=== PATIENT | female | born 1960 | race Hispanic/Latino ===

== ENCOUNTER 2020-01-10 11:38 | Emergency (ER) | payer OTHER ==
[~2020-01-10] VITALS: Ht 160 cm; Wt 112.5 kg
--- OUTSIDE RECORDS SUMMARY | 2020-01-10 11:41 | XMS REPORT | Clinical Summary ---
Author Author [facility] Address Unknown Phone Unavailable Care Team Providers Care Marketing Professional Name Role Phone Chirag Casiano MD PCP Unavailable Allergies Comments Active Allergy Reactions Severity Noted Date Fluconazole Anaphylaxis High 08/30/2016 Medications End Date Status Medication Sig Dispensed Refills Start Date Active metoprolol (LOPRESSOR) 50 50 mg 2 (two) 0 01/0 3/201 MG tablet times daily . 7 Active ursodiol (ACTIGALL) 300 300 mg 2 0 08/13/ 201 mg capsule (two) times 7 daily 2 capsules in the mornings (600mg) and 1 cap at night (300mg). Active fenofibrate micronized 200 mg every 0 06/05/ 01 (LOFIBRA) 200 MG capsule morning 6 before breakfast . Active simvastatin (ZOCOR) 40 MG 40 mg nightly 0 07/11201 tablet . 6 Active aspirin 81 MG EC tablet Take 81 mg by 0 mouth daily. Active clopidogrel (PLAVIX) 75 Take 75 mg by 0 mg tablet mouth daily. Active glipiZIDE (GLUCOTROL) 10 Take 10 mg by 0 MG tablet mouth 2 (two) times daily before meals. Active insulin 70/30, insulin Inject 3-5 0 NPH-insulin regular, Units (HUMULIN 70/30) 100 subcutaneousl unit/mL (70-30) injection y 2 (two) times daily before meals. Active ranitidine (ZANTAC) 150 Take 1 tablet 60 tablet 11 05/29/201 MG tablet (150 mg 8 total) by mouth nightly. Active mINOCYCLine Take 100 mg 0 (MINOCIN,DYNACIN) 100 MG by mouth 2 capsule (two) times daily. Active Problems Problem Noted Date Hyperuricemia 05/29/2018 Increased [id number]-[id number] ratio 05/29/2018 Nephrotic syndrome, by hx 05/25/2018 JONATAN (acute kidney injury) 05/25/2018 Duodenal ulcer, by hx 05/25/2018 H/O: CVA (cerebrovascular accident) 05/24/2018 SOB (shortness of breath) 05/24/2018 Volume overload 05/23/2018 Acute heart failure 05/23/2018 Anemia 05/23/2018 Symptomatic anemia 09/12/2016 Leg swelling 09/12/2016 Type 2 diabetes mellitus with hyperglycemia 09/12/19 17 Black tarry stools 09/12/2016 Morbid obesity with BMI of 40.0-44.9, adult 09/12/19 17 Immunizations Name Dates Previously Given Next Due Pneumococcal Conjugate 07/19/2018, 05/29/2018 (Prevnar) 13-Valent Family History Medical History Relation Name Comments Heart disease Mother Relation Name Status Comments Mother Social History Date Tobacco Use Types Packs/Day Years Used Never Smoker Alcohol Use Drinks/Week oz/Week Comments No Sex Assigned at Date Recorded Not on file Industry Job Start Date Occupation Not on file Not on file Not on file Travel End Travel History Travel Start No recent travel history available. Last Filed Vital Signs Not on file Plan of Treatment Not on file Results Not on fileafter 01/09/2019 Insurance Payer Benefit Subscriber ID Type Phone Address Plan / Group [employer] - [employer] xxxxxxxxxxx HMO/POS NETWORK Advance Directives For more information, please contact: [facility] [address] [place] [address] Date Inactivated Comments Code Status Date Activated Full Code 07/18/2018 10:58 PM This code status was determined by: Patient 05/29/2018 7:44 PM Full Code 05/23/2018 11:20 PM This code status was determined by: Patient 09/13/2016 6:48 PM Full Code 09/12/2016 7:35 PM This code status was determined by: Patient
--- OUTSIDE RECORDS SUMMARY | 2020-01-10 11:41 | XMS REPORT ---
Author Author [facility] t Organization [facility] Address [address] [place] [address] Phone Unavailable Care Team Providers Care Cured Meats Supervisor Name Role Phone EWA FLORES WING Attphys Unavailable JESUSITA, PRICE WINTER Attphys Unavailable TRISHA PICKERING Attphys Unavailable MARIAM LOONEY Admphys Unavailable AYESHA AVILA Admphys Unavailable Payers Payer Name Policy Type Policy Number Effective Date Expiration Date S ource Problems This patient has no known problems. Allergies, Adverse Reactions, Alerts Allergy Name Allergy Type Status Severity Reaction(s) Onset Date Inacti ve Date Treating Clinician Comments Source fluconazole DA Active U 2019-12-28 00:00:00 [facility] fluconazole DA Active U 2018-04-30 00:00:00 [facility] fluconazole DA Active U 2016-08-14 00:00:[address] [facility] Medications This patient has no known medications. Procedures This patient has no known procedures. Results Test Description Test Time Test Comments Results Result Comments Source GLUBED 2019-12-29 11:09:00 Test Item GLUBED (test code = GLUBED) 337 mg/dL 74-106 H Performed by certified insulation batting machine operator at [facility] [id number] 06:27:00* Test Item Value Reference Range Interpretation Comments GLUBED (test code = GLUBED) 238 mg/dL 74-106 H Performed by certified insulation batting machine operator at [facility] BASIC METABOLIC [id number] 04:36:00* Test Item Value Reference Range Interpretation Comments SODIUM (test code = NA) 140 mmol/L 136-145 N POTASSIUM (test code = K) 4.4 mmol/L 3.5-5.1 N CHLORIDE (test code = CL) 106.0 mmol/L 98-107 N CARBON DIOXIDE (test code = CO2) 25.0 mmol/L 21-32 N ANION GAP (test code = GAP) 13.4 10-20 N GLUCOSE (test code = GLU) 199 mg/dL 74-106 H BLOOD UREA NITROGEN (test code = BUN) 42 mg/dL 7-18 H GLOMERULAR FILTRATION RATE (test code = GFR) 39 mL/min >=60 Estimated GFR by using Modified MDRD formula.Chronic kidney disease is defined as either kidney damageor GFR <60 mL/min/1.73 m2 for >3 months. CREATININE (test code = CREAT) 1.40 mg/dL 0.55-1.02 H Note change in reference range due to change in reagent. BUN/CREATININE RATIO (test code = BUN/CREA) 30.0 10-20 H CALCIUM (test code = CA) 8.1 mg/dL 8.5-10.1 L BASIC METABOLIC [id number] 04:31:00* Test Item Value Reference Range Interpretation Comments SODIUM (test code = NA) 140 mmol/L 136-145 N POTASSIUM (test code = K) 4.4 mmol/L 3.5-5.1 N CHLORIDE (test code = CL) 106.0 mmol/L 98-107 N CARBON DIOXIDE (test code = CO2) mmol/L 21-32 ANION GAP (test code = GAP) 10-20 GLUCOSE (test code = GLU) mg/dL 74-106 BLOOD UREA NITROGEN (test code = BUN) mg/dL 7-18 GLOMERULAR FILTRATION RATE (test code = GFR) mL/min >=60 CREATININE (test code = CREAT) mg/dL 0.55-1.02 BUN/CREATININE RATIO (test code = BUN/CREA) 10-20 CALCIUM (test code = CA) mg/dL 8.5-10.1 [id number] 21:13:00* Test Item Value Reference Range Interpretation Comments GLUBED (test code = GLUBED) 117 mg/dL 74-106 H Performed by certified insulation batting machine operator at [facility] - MRI BRAIN W/O [id number] 18:55:00 FAX: Syl Saunders [phone] [place]: St: ADM FAX: Margarette Hewitt NP Name: ALEXI AGUILAR [facility] : 1960 Age/S: 59/F [address] [facility] Unit #: [id number] Loc: V.20[address] [place] [address] Phys: Margarette Hewitt NP Acct: [id number] Dis Date: Status: ADM IN PHONE #: [phone] Exam Date: 12/28/2019 1623 FAX #: [phone] Reason: r/o CVA EXAMS: CPT CODE: [id number] MRI BRAIN W/O CONTRAST 79922 EXAM: MRI of the brain without contrast; INFORMATION: Hypertensive urgency, TIA; rule out CVA; TECHNIQUE AND FINDINGS: Multiplanar, multisequence scans of the brain were obtained including diffusion-weighted studies. The diffusion scans showed no areas of restricted diffusion. There is a small, chronic infarct in the left occipital lobe and there is extensive gliosis involving the periventricula r white matter and there are disseminated foci of gliosis in the deep whit e matter bilaterally. Otherwise, unremarkable archuleta/white matter diff erentiation. No evidence of mass lesions or midline shift. The gradi ent echo study shows no evidence of intra or extra-axial hemorrhage. Expected flow-voids are seen within vascular structures. Ventricles are s ymmetric and are prominent for age; sulci and basilar cisterns are intact. IMPRESSION: 1. No evidence of intracranial hemorrhage or acute ischemic lesions. 2. 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 3. Chronic ischemic white matter changes. 4. Mild atrophy. Location code: [facility] at 1855 Reported and signed by: Tree Velazco M.D. CC: Syl Dawson MD; Margarette Hewitt NP Technologist: Erwin RosenR)(MR) Trnscrd Date/Time/By: 0 12/28/2019 (1854) : By: RyanGRW Orig Print D/T: S: 12/28/2019 (1857) PAGE 1 Signed Report [id number] 16:47:00* Test Item Value Reference Range Interpretation Comments GLUBED (test code = GLUBED) 145 mg/dL 74-106 H Performed by certified insulation batting machine operator at [facility] [id number] 11:10:00* Test Item Value Reference Range Interpretation Comments GLUBED (test code = GLUBED) 384 mg/dL 74-106 H Performed by certified insulation batting machine operator at [facility] BASIC METABOLIC [id number] 07:24:00* Test Item Value Reference Range Interpretation Comments SODIUM (test code = NA) 139 mmol/L 136-145 N POTASSIUM (test code = K) 4.8 mmol/L 3.5-5.1 N CHLORIDE (test code = CL) 106.0 mmol/L 98-107 N CARBON DIOXIDE (test code = CO2) 26.0 mmol/L 21-32 N ANION GAP (test code = GAP) 11.8 10-20 N GLUCOSE (test code = GLU) 224 mg/dL 74-106 H BLOOD UREA NITROGEN (test code = BUN) 34 mg/dL 7-18 H RESULT VERIFIED BY REPEAT ANALYSIS GLOMERULAR FILTRATION RATE (test code = GFR) 46 mL/min >=60 Estimated GFR by using Modified MDRD formula.Chronic kidney disease is defined as either kidney damageor GFR <60 mL/min/1.73 m2 for >3 months. CREATININE (test code = CREAT) 1.20 mg/dL 0.55-1.02 H Note change in reference range due to change in reagent. BUN/CREATININE RATIO (test code = BUN/CREA) 28.3 10-20 H CALCIUM (test code = CA) 8.5 mg/dL 8.5-10.1 N LIPID PROFILE (CORONARY RISK)2019-12-28 07:23:00* Test Item Value Reference Range Interpretation Comments TRIGLYCERIDES (test code = TRIG) 266 mg/dL 20-150 H CHOLESTEROL (test code = CHOL) 174 mg/dL 0-200 N CHOLESTEROL/HDL RATIO (test code = CHOLHDL) 3.0 RATIO 0-4.9 N RISK ASSOCIATED WITH CHOL/HDL RATIOS: Risk Male Female1/2 AVERAGE 3.43 3.27AVERAGE 4.97 4.442X AVERAGE 9.55 7.053X AVERAGE 23.39 11.04 REFERENCE VALUE IS RELATED TO RISK LEVELS ASRECOMMENDED BY THE YAMEL. HEART, LUNG, AND BLOOD INST. HDL CHOLESTEROL (test code = HDL) 44 mg/dL 40-60 N LIPOPROTEIN LDL (test code = LDL) 99 mg/dL 100-129 L Reference Interval: mg/dL mmol/L Optimal <100 <2.6Near/above optimal 100-129 2.6- 3.3Borderline High 130-159 3.4-4.1High 160-189 4.1-4.9Very High >=190 >=4.9========= This LDL result is a direct measurement.========= CBC W/AUTO [id number] 07:16:00* Test Item Value Reference Range Interpretation Comments WHITE BLOOD CELL (test code = WBC) 9.1 K/mm3 4.5-12.5 N RED BLOOD CELL (test code = RBC) 3.79 mill/mm3 3.7-5.2 N HEMOGLOBIN (test code = HGB) 10.9 gram/dL 11.5-15.5 L HEMATOCRIT (test code = HCT) 33.7 % 36.0-46.0 L MEAN CELL VOLUME (test code = MCV) 88.9 fL 80-98 N MEAN CELL HGB (test code = MCH) 28.8 picogram 27.0-33.0 N MEAN CELL HGB CONCETRATION (test code = MCHC) 32.3 gram/dL 33.0-36. 0 L RED CELL DISTRIBUTION WIDTH (test code = RDW) 14.5 % 11.6-16. 2 N RED CELL DISTRIBUTION WIDTH SD (test code = RDW-SD) 46.7 fL 37 .0-51.0 N PLATELET COUNT (test code = PLT) 229 K/mm3 150-450 N MEAN PLATELET VOLUME (test code = MPV) 12.6 fL 6.7-11.0 H NEUTROPHIL % (test code = NT%) 56.3 % 39.0-69.0 N IMMATURE GRANULOCYTE % (test code = IG%) 0.3 % 0.0-5.0 N LYMPHOCYTE % (test code = LY%) 29.8 % 25.0-55.0 N MONOCYTE % (test code = MO%) 10.5 % 0.0-10.0 H EOSINOPHIL % (test code = EO%) 2.4 % 0.0-5.0 N BASOPHIL % (test code = BA%) 0.7 % 0.0-1.0 N NUCLEATED RBC % (test code = NRBC%) 0.0 % 0-0 N NEUTROPHIL # (test code = NT#) 5.12 K/mm3 1.8-7.7 N IMMATURE GRANULOCYTE # (test code = IG#) 0.03 x10 3/uL 0-0.03 N LYMPHOCYTE # (test code = LY#) 2.71 K/mm3 1.0-5.0 N MONOCYTE # (test code = MO#) 0.96 K/mm3 0-0.8 H EOSINOPHIL # (test code = EO#) 0.22 K/mm3 0.0-0.5 N BASOPHIL # (test code = BA#) 0.06 K/mm3 0.0-0.2 N NUCLEATED RBC # (test code = NRBC#) 0.00 K/mm3 0.0-0.1 N MANUAL DIFF REQUIRED (test code = MDIFF) NO BASIC METABOLIC [id number] 07:12:00* Test Item Value Reference Range Interpretation Comments SODIUM (test code = NA) 139 mmol/L 136-145 N POTASSIUM (test code = K) 4.8 mmol/L 3.5-5.1 N CHLORIDE (test code = CL) 106.0 mmol/L 98-107 N CARBON DIOXIDE (test code = CO2) mmol/L 21-32 ANION GAP (test code = GAP) 10-20 GLUCOSE (test code = GLU) mg/dL 74-106 BLOOD UREA NITROGEN (test code = BUN) mg/dL 7-18 GLOMERULAR FILTRATION RATE (test code = GFR) mL/min >=60 CREATININE (test code = CREAT) mg/dL 0.55-1.02 BUN/CREATININE RATIO (test code = BUN/CREA) 10-20 CALCIUM (test code = CA) mg/dL 8.5-10.1 [id number] 06:42:00* Test Item Value Reference Range Interpretation Comments GLUBED (test code = GLUBED) 234 mg/dL 74-106 H Performed by certified insulation batting machine operator at [facility] - CTA [id number] 02:47:00 Name: ALEXI AGUILAR [facility] : 1960 Age/S: 59 / F [address] [facility] Unit #: [id number] Loc: [place] [address] Phys: Margarette Hewitt NP Acct: [id number] Dis Date: Status: ADM IN PHONE #: [phone] Exam Date: 12/27/20192006 FAX #: [phone] Reason: r/o CVA EXAMS: CPT CODE: [id number] CTA NECK 58498 EXAM: - CTA NECK HISTORY: Left arm tingling. COMPARISON: May 02, 2018. TECHNIQUE: Helical axial images were obtained from aortic arch to mid calvarium with IV contrast using the CT angiography protocol. 3D volume rendering, MIP and review of multiplanar reconstructed images was done. This exam was performed according to our departmental dose-optimization program, which includes automated exposure control, adjustment of the mA and/or kV according to patient size and/or use of iterative reconstruction technique. FINDINGS: There is no significant change compared to prior exam. There is no significant stenosis in bilateral common carotid, and internal carotid arteries. The vertebral arteries are patent. Coronal and sagittal maximum intensity projection images with 3-D volume rendered images confirm these findings. IMPRESSION: Unremarkable CTA neck. at 0247 Reported and signed by: Shoaib Miller MD CC: Syl Dawson MD; Margarette Hewitt NP Technologist:Nilam Gongora RT(R); JAMIL Bach CTDI: DLP: Trnscb Date/Time: 12/28/2019 (246) [email or web address] Orig Print D/T: S: 12/28/2019 (3236) PAGE 1 Signed Report [id number] 22:28:00* Test Item Value Reference Range Interpretation Comments TROPONIN-I (test code = TROPI) <0.015 ng/mL 0-0.045 N [id number] 22:18:00* Test Item Value Reference Range Interpretation Comments GLUBED (test code = GLUBED) 309 mg/dL 74-106 H Performed by certified insulation batting machine operator at [facility] [id number] 19:53:00* Test Item Value Reference Range Interpretation Comments D-DIMER (test code = DDIMER) 680.00 ng/mLFEU 0-500 HH Results called to [id number] by VYANIRA 12/27/19 1953Critical results verified and read back by Nurse? YClinical Cut-off value for D-Dimer is 500 ng/mL FEU. Comment: The [employer] D- Dimer assay is intended for use asan aid in the diagnosis of venous thromboembolism (VTE)[deep vein thrombosis (DVT) or pulmonary embolism (PE)].The measurement of D-Dimer should not be used as an aid inthe diagnosis of VTE, in patient with: -Therapeutic dose anticoagulant therapy for >24 hours - Fibrinolytic therapy within previous 7 days -Trauma or surgery within previous 4 weeks -Disseminated malignancies -Aortic aneurysm -Sepsis, severe infections, pneumonia, severe skin infections -Liver cirrhosis - [id number] 18:27:00* Test Item Value Reference Range Interpretation Comments MAGNESIUM (test code = MAG) 1.7 mg/dL 1.8-2.4 L THYROID STIMULATING [id number] 18:27:00* Test Item Value Reference Range Interpretation Comments THYROID STIMULATING HORMONE (test code = TSH) 2.470 uIU/mL 0.36-3.7 4 N TSH REFERENCE RANGES: EUTHYROID: 0.35 - 4.3 mIU/mL HYPO : > 5.5 mIU/mL HYPER : < 0.35 mIU/mL [id number] 18:22:00* Test Item Value Reference Range Interpretation Comments POTASSIUM (test code = K) 5.0 mmol/L 3.5-5.1 N [id number] 18:20:00* Test Item Value Reference Range Interpretation Comments TROPONIN-I (test code = TROPI) 0.022 ng/mL 0-0.045 N [id number] 18:15:00* Test Item Value Reference Range Interpretation Comments GLYCOSYLATED HEMOGLOBIN (HA1C) (test code = GLYHGB) 12.3 % HbA1 SUGGESTED DIAGNOSIS: HbA1C (%) Diabetic >6.4Prediabetes 5.7 - 6.4Normal <5.7 ESTIMATED AVERAGE GLUCOSE (test code = EAG) 306 MG/DL [id number] 18:15:00* Test Item Value Reference Range Interpretation Comments MAGNESIUM (test code = MAG) 1.7 mg/dL 1.8-2.4 L THYROID STIMULATING [id number] 18:15:00* Test Item Value Reference Range Interpretation Comments THYROID STIMULATING HORMONE (test code = TSH) uIU/mL 0.36-3.7 4 [id number] 16:18:00* Test Item Value Reference Range Interpretation Comments GLUBED (test code = GLUBED) 254 mg/dL 74-106 H Performed by certified insulation batting machine operator at [facility] URINALYSIS [id number] 13:55:00* Test Item Value Reference Range Interpretation Comments UA COLOR (test code = COLU) Light-Yellow YELLOW UA APPEARANCE (test code = APPU) CLEAR CLEAR UA GLUCOSE DIPSTICK (test code = DGLUU) 500 (3+) mg/dL NEGATIVE A UA BILIRUBIN DIPSTICK (test code = BILU) NEGATIVE mg/dL NEGATIVE UA KETONE DIPSTICK (test code = KETU) NEGATIVE mg/dL NEGATIVE UA SPECIFIC GRAVITY (test code = SGU) 1.012 1.001-1.035 UA BLOOD DIPSTICK (test code = STACIE) 0.06 mg/dL (1+) mg/dL NEGATIVE A UA PH DIPSTICK (test code = JOHNIE) 7.0 5.0-8.0 UA PROTEIN DIPSTICK (test code = PROU) 300 (3+) mg/dL NEGATIVE A UA UROBILINIOGEN DIPSTICK (test code = URO) Normal mg/dL NEGATIVE UA NITRITE DIPSTICK (test code = KEREN) NEGATIVE NEGATIVE UA LEUKOCYTE ESTERASE W REFLEX (test code = LEUUR) NEGATIVE Roxanne/uL NEGATIVE UA WBC (test code = WBCU) 6-10 per HPF 0-5 A UA RBC (test code = RBCU) 11-20 #/HPF 0-5 A UA EPITHELIAL CELLS (test code = EPIU) FEW per HPF FEW UA BACTERIA (test code = BACU) NONE SEEN #/HPF NONE UA HYALINE CAST (test code = HYALU) 6-10 #/LPF 0-5 A UA MUCUS (test code = MUCU) FEW #/LPF FEW Urine Source? Clean CatchURINALYSIS [id number] 13:44:00* Test Item Value Reference Range Interpretation Comments UA COLOR (test code = COLU) Light-Yellow YELLOW UA APPEARANCE (test code = APPU) CLEAR CLEAR UA GLUCOSE DIPSTICK (test code = DGLUU) 500 (3+) mg/dL NEGATIVE A UA BILIRUBIN DIPSTICK (test code = BILU) NEGATIVE mg/dL NEGATIVE UA KETONE DIPSTICK (test code = KETU) NEGATIVE mg/dL NEGATIVE UA SPECIFIC GRAVITY (test code = SGU) 1.012 1.001-1.035 UA BLOOD DIPSTICK (test code = STACIE) 0.06 mg/dL (1+) mg/dL NEGATIVE A UA PH DIPSTICK (test code = JOHNIE) 7.0 5.0-8.0 UA PROTEIN DIPSTICK (test code = PROU) 300 (3+) mg/dL NEGATIVE A UA UROBILINIOGEN DIPSTICK (test code = URO) Normal mg/dL NEGATIVE UA NITRITE DIPSTICK (test code = KEREN) NEGATIVE NEGATIVE UA LEUKOCYTE ESTERASE W REFLEX (test code = LEUUR) NEGATIVE Roxanne/uL NEGATIVE UA WBC (test code = WBCU) per HPF 0-5 UA RBC (test code = RBCU) per HPF 0-5 UA EPITHELIAL CELLS (test code = EPIU) per HPF Few UA BACTERIA (test code = BACU) per HPF NONE Urine Source? Clean Catch- CT HEAD/BRAIN W/O [id number] 13:43:00 Name: ALEXI AGUILAR [facility] : 1960 Age/S: 59 / F [address] Unit #: [id number] Loc: [place] [address] Phys: Keila Mckeon MD Acct: [id number] Di s Date: Status: REG ER PHONE #: Exam Date: 12/27/2019 1332 FAX #: [phone] Reason: WEAKNESS EXAMS: CPT CODE: [id number] CT HEAD/BRAIN W/O CONT 93342 HISTORY: Weakness. COMPARISON: MRI brain from August 27, 2010 and MRI brain from Apr and head CT from April 30, 2018. Location: [facility] . CT brain without contrast: Automated exposure control. No acute intracranial bleeds or extra-axial collections are noted. No acute territorial vascular infarction is noted. The sulci, gyri, ventricles and subarachnoid spaces and the basilar cisterns are normal for patient's age. No herniation or hydrocephalus or midline shift is noted. Mild periventricular ischemic gliosis is noted. Age-appropriate atrophy is noted as well. Portions of the visualized paranasal sinuses are normal. No obvious bony calvarial defect is noted. IMPRESSION: No acute intracranial bleeds or extra- axial collections. No acute territorial vascular infarction. No herniation or hydrocephalus or midline shift. Chronic white matter ischemic disease and atrophy . at 1343 Reported and signed by: Arpit Henning M.D. CC: Ivone Mckeon MD Technologist:Camille Patel,RT(R),CT CTDI: DLP: Trnscb Date/Time: 12/27/2019 (9442) t.SDR.[email or web address] Orig Print D/T: S: 12/27/2019 (5339) PAGE 1 Signed Report PROTHROMBIN [id number] 12:42:00* Test Item Value Reference Range Interpretation Comments PROTHROMBIN TIME PATIENT (test code = PTP) 12.3 seconds 9.0-14.0 N INTERNATIONAL NORMAL RATIO (test code = INR) 1.1 0.8-1.2 N The therapeutic range for oral anticoagulant therapy formost indications is an international normalized ratio (INR)of between 2.0 and 3.0. The recommended therapeutic INRrange for various clinical situations is listed below: Clinical Situation INR range Pulmonary e mbolism treatment (2.0-3.0)Venous thrombosis treatmentVenous thrombosis prophylaxis (high risk surgery)Prevention of systemic embolism from: Acute myocardial infarction Valvular heart disease Atrial fibrillation Mechanical prosthetic heart valves (2.5-3.5) IS PATIENT ON ANTICOAGULANTS? NTHROMBOPLASTIN TIME [id number] 12:42:00* Test Item Value Reference Range Interpretation Comments THROMBOPLASTIN TIME PARTIAL (test code = PTT) 33.9 seconds 23.0-37. 0 N IS PATIENT ON ANTICOAGULANTS? NBASIC METABOLIC [id number] 12:41:00* Test Item Value Reference Range Interpretation Comments SODIUM (test code = NA) 136 mmol/L 136-145 N POTASSIUM (test code = K) 5.6 mmol/L 3.5-5.1 H CHLORIDE (test code = CL) 106.0 mmol/L 98-107 N CARBON DIOXIDE (test code = CO2) 23.0 mmol/L 21-32 N ANION GAP (test code = GAP) 12.6 10-20 N GLUCOSE (test code = GLU) 280 mg/dL 74-106 H BLOOD UREA NITROGEN (test code = BUN) 28 mg/dL 7-18 H GLOMERULAR FILTRATION RATE (test code = GFR) 57 mL/min >=60 Estimated GFR by using Modified MDRD formula.Chronic kidney disease is defined as either kidney damageor GFR <60 mL/min/1.73 m2 for >3 months. CREATININE (test code = CREAT) 1.00 mg/dL 0.55-1.02 N Note change in reference range due to change in reagent. BUN/CREATININE RATIO (test code = BUN/CREA) 29.0 10-20 H CALCIUM (test code = CA) 8.3 mg/dL 8.5-10.1 L HEPATIC FUNCTION [id number] 12:41:00* Test Item Value Reference Range Interpretation Comments TOTAL PROTEIN (test code = PROT) 6.8 gram/dL 6.4-8.2 N ALBUMIN (test code = ALB) 2.4 g/dL 3.4-5.0 L GLOBULIN (test code = GLOB) 4.4 gram/dL 2.7-4.2 H ALBUMIN/GLOBULIN RATIO (test code = A/G) 0.5 0.75-1.50 L BILIRUBIN TOTAL (test code = BILT) 0.50 mg/dL 0.0-1.0 N BILIRUBIN DIRECT (test code = BILD) 0.06 mg/dL 0.0-0.20 N SGOT/AST (test code = AST) 36 IUnit/L 15-37 N SGPT/ALT (test code = ALT) 20 IUnit/L 12-78 N ALKALINE PHOSPHATASE TOTAL (test code = ALKP) 256 IUnit/L 45-117 H Note change in reference range due to change in reagent. [id number] 12:41:00* Test Item Value Reference Range Interpretation Comments LIPASE (test code = LIP) 261 U/L 73.0-393.0 N [id number] 12:41:00* Test Item Value Reference Range Interpretation Comments TROPONIN-I (test code = TROPI) <0.015 ng/mL 0-0.045 N BASIC METABOLIC [id number] 12:34:00* Test Item Value Reference Range Interpretation Comments SODIUM (test code = NA) 136 mmol/L 136-145 N POTASSIUM (test code = K) 5.6 mmol/L 3.5-5.1 H CHLORIDE (test code = CL) 106.0 mmol/L 98-107 N CARBON DIOXIDE (test code = CO2) mmol/L 21-32 ANION GAP (test code = GAP) 10-20 GLUCOSE (test code = GLU) mg/dL 74-106 BLOOD UREA NITROGEN (test code = BUN) mg/dL 7-18 GLOMERULAR FILTRATION RATE (test code = GFR) mL/min >=60 CREATININE (test code = CREAT) mg/dL 0.55-1.02 BUN/CREATININE RATIO (test code = BUN/CREA) 10-20 CALCIUM (test code = CA) mg/dL 8.5-10.1 HEPATIC FUNCTION [id number] 12:34:00* Test Item Value Reference Range Interpretation Comments TOTAL PROTEIN (test code = PROT) gram/dL 6.4-8.2 ALBUMIN (test code = ALB) g/dL 3.4-5.0 GLOBULIN (test code = GLOB) gram/dL 2.7-4.2 ALBUMIN/GLOBULIN RATIO (test code = A/G) 0.75-1.50 BILIRUBIN TOTAL (test code = BILT) mg/dL 0.0-1.0 BILIRUBIN DIRECT (test code = BILD) mg/dL 0.0-0.20 SGOT/AST (test code = AST) IUnit/L 15-37 SGPT/ALT (test code = ALT) IUnit/L 12-78 ALKALINE PHOSPHATASE TOTAL (test code = ALKP) IUnit/L 45-117 [id number] 12:34:00* Test Item Value Reference Range Interpretation Comments LIPASE (test code = LIP) U/L 73.0-393.0 [id number] 12:34:00* Test Item Value Reference Range Interpretation Comments TROPONIN-I (test code = TROPI) ng/mL 0-0.045 CBC W/O [id number] 12:31:00* Test Item Value Reference Range Interpretation Comments WHITE BLOOD CELL (test code = WBC) 9.6 K/mm3 4.5-12.5 N RED BLOOD CELL (test code = RBC) 4.22 mill/mm3 3.7-5.2 N HEMOGLOBIN (test code = HGB) 11.9 gram/dL 11.5-15.5 N HEMATOCRIT (test code = HCT) 37.3 % 36.0-46.0 N MEAN CELL VOLUME (test code = MCV) 88.4 fL 80-98 N MEAN CELL HGB (test code = MCH) 28.2 picogram 27.0-33.0 N MEAN CELL HGB CONCETRATION (test code = MCHC) 31.9 gram/dL 33.0-36. 0 L RED CELL DISTRIBUTION WIDTH (test code = RDW) 14.3 % 11.6-16. 2 N PLATELET COUNT (test code = PLT) 245 K/mm3 150-450 N MEAN PLATELET VOLUME (test code = MPV) 12.7 fL 6.7-11.0 H POCT-GLUCOSE [id number] 12:34:00* Test Item Value Reference Range Interpretation Comments POC-GLUCOSE METER (BEAKER) (test code = 1538) 283 mg/dL 70-110 H TESTED AT [facility] [address] [facility] [address] POCT-GLUCOSE [id number] 08:22:00* Test Item Value Reference Range Interpretation Comments POC-GLUCOSE METER (BEAKER) (test code = 1538) 190 mg/dL 70-110 H TESTED AT [address] [address] [id number] 05:07:00* Test Item Value Reference Range Interpretation Comments MAGNESIUM (BEAKER) (test code = 627) 2.2 mg/dL 1.6-2.6 BASIC METABOLIC [id number] 05:07:00* Test Item Value Reference Range Interpretation Comments SODIUM (BEAKER) (test code = 381) 139 meq/L 136-145 POTASSIUM (BEAKER) (test code = 379) 3.9 meq/L 3.5-5.1 CHLORIDE (BEAKER) (test code = 382) 95 meq/L 98-107 L CO2 (BEAKER) (test code = 355) 34 meq/L 22-29 H BLOOD UREA NITROGEN (BEAKER) (test code = 354) 100 mg/dL 7-21 H CREATININE (BEAKER) (test code = 358) 1.59 mg/dL 0.57-1.25 H GLUCOSE RANDOM (BEAKER) (test code = 652) 140 mg/dL 70-105 H CALCIUM (BEAKER) (test code = 697) 9.4 mg/dL 8.4-10.2 EGFR (BEAKER) (test code = 1092) 33 mL/min/1.73 sq m ESTIMATED GFR IS NOT ACCURATE CREATININE CLEARANCE IN PREDICTING GLOMERULAR FILTRATION RATE. ESTIMATED GFR IS NOT APPLICABLE FOR DIALYSIS PATIENTS. POCT-GLUCOSE [id number] 21:50:00* Test Item Value Reference Range Interpretation Comments POC-GLUCOSE METER (BEAKER) (test code = 1538) 408 mg/dL 70-110 HH TESTED AT [place] [id number] [facility] [address] POCT-GLUCOSE [id number] 17:16:00* Test Item Value Reference Range Interpretation Comments POC-GLUCOSE METER (BEAKER) (test code = 1538) 280 mg/dL 70-110 H TESTED AT [facility] [address] [facility] [address] POCT-GLUCOSE [id number] 12:39:00* Test Item Value Reference Range Interpretation Comments POC-GLUCOSE METER (BEAKER) (test code = 1538) 321 mg/dL 70-110 H TESTED AT [place] [id number] [facility] [address] POCT-GLUCOSE [id number] 08:49:00* Test Item Value Reference Range Interpretation Comments POC-GLUCOSE METER (BEAKER) (test code = 1538) 178 mg/dL 70-110 H TESTED AT [place] [id number] [facility] [address] [id number] 07:00:00* Test Item Value Reference Range Interpretation Comments MAGNESIUM (BEAKER) (test code = 627) 2.0 mg/dL 1.6-2.6 BASIC METABOLIC [id number] 07:00:00* Test Item Value Reference Range Interpretation Comments SODIUM (BEAKER) (test code = 381) 136 meq/L 136-145 POTASSIUM (BEAKER) (test code = 379) 3.6 meq/L 3.5-5.1 CHLORIDE (BEAKER) (test code = 382) 94 meq/L 98-107 L CO2 (BEAKER) (test code = 355) 31 meq/L 22-29 H BLOOD UREA NITROGEN (BEAKER) (test code = 354) 100 mg/dL 7-21 H CREATININE (BEAKER) (test code = 358) 1.74 mg/dL 0.57-1.25 H GLUCOSE RANDOM (BEAKER) (test code = 652) 146 mg/dL 70-105 H CALCIUM (BEAKER) (test code = 697) 9.0 mg/dL 8.4-10.2 EGFR (BEAKER) (test code = 1092) 30 mL/min/1.73 sq m ESTIMATED GFR IS NOT ACCURATE CREATININE CLEARANCE IN PREDICTING GLOMERULAR FILTRATION RATE. ESTIMATED GFR IS NOT APPLICABLE FOR DIALYSIS PATIENTS. CBC W/PLT COUNT & AUTO [id number] 06:14:00* Test Item Value Reference Range Interpretation Comments WHITE BLOOD CELL COUNT (BEAKER) (test code = 775) 7.0 K/ L 3.5- 10.5 RED BLOOD CELL COUNT (BEAKER) (test code = 761) 3.17 M/ L 3.93-5 .22 L HEMOGLOBIN (BEAKER) (test code = 410) 8.6 GM/DL 11.2-15.7 L HEMATOCRIT (BEAKER) (test code = 411) 27.4 % 34.1-44.9 L MEAN CORPUSCULAR VOLUME (BEAKER) (test code = 753) 86.4 fL 79. 4-94.8 MEAN CORPUSCULAR HEMOGLOBIN (BEAKER) (test code = 751) 27.1 pg 25.6-32.2 MEAN CORPUSCULAR HEMOGLOBIN CONC (BEAKER) (test code = 752) 31.4 GM/DL 32.2-35.5 L RED CELL DISTRIBUTION WIDTH (BEAKER) (test code = 412) 16.0 % 11.7-14.4 H PLATELET COUNT (BEAKER) (test code = 756) 191 K/CU MM 150-450 MEAN PLATELET VOLUME (BEAKER) (test code = 754) 13.1 fL 9.4-12 .3 H NUCLEATED RED BLOOD CELLS (BEAKER) (test code = 413) 0 /100 WBC 0 -0 NEUTROPHILS RELATIVE PERCENT (BEAKER) (test code = 429) 38 % LYMPHOCYTES RELATIVE PERCENT (BEAKER) (test code = 430) 41 % MONOCYTES RELATIVE PERCENT (BEAKER) (test code = 431) 15 % EOSINOPHILS RELATIVE PERCENT (BEAKER) (test code = 432) 4 % BASOPHILS RELATIVE PERCENT (BEAKER) (test code = 437) 1 % NEUTROPHILS ABSOLUTE COUNT (BEAKER) (test code = 670) 2.68 K/ L 1.56-6.13 LYMPHOCYTES ABSOLUTE COUNT (BEAKER) (test code = 414) 2.83 K/ L 1.18-3.74 MONOCYTES ABSOLUTE COUNT (BEAKER) (test code = 415) 1.07 K/ L 0. 24-0.36 H EOSINOPHILS ABSOLUTE COUNT (BEAKER) (test code = 416) 0.31 K/ L 0.04-0.36 BASOPHILS ABSOLUTE COUNT (BEAKER) (test code = 417) 0.07 K/ L 0. 01-0.08 IMMATURE GRANULOCYTES-RELATIVE PERCENT (BEAKER) (test code = 2801) 0 % 0-1 POCT-GLUCOSE [id number] 21:45:00* Test Item Value Reference Range Interpretation Comments POC-GLUCOSE METER (BEAKER) (test code = 1538) 188 mg/dL 70-110 H TESTED AT [address] [address] POCT-GLUCOSE [id number] 17:41:00* Test Item Value Reference Range Interpretation Comments POC-GLUCOSE METER (BEAKER) (test code = 1538) 278 mg/dL 70-110 H TESTED AT [address] [address] POCT-GLUCOSE [id number] 12:36:00* Test Item Value Reference Range Interpretation Comments POC-GLUCOSE METER (BEAKER) (test code = 1538) 193 mg/dL 70-110 H TESTED AT [address] [address] POCT-GLUCOSE [id number] 09:38:00* Test Item Value Reference Range Interpretation Comments POC-GLUCOSE METER (BEAKER) (test code = 1538) 201 mg/dL 70-110 H TESTED AT [address] [address] POCT-GLUCOSE [id number] 09:02:00* Test Item Value Reference Range Interpretation Comments POC-GLUCOSE METER (BEAKER) (test code = 1538) 202 mg/dL 70-110 H TESTED AT [address] [address] TSH/FREE T4 IF [id number] 05:41:00* Test Item Value Reference Range Interpretation Comments THYROID STIMULATING HORMONE (BEAKER) (test code = 772) 2.72 uIU/mL 0.35-4.94 BASIC METABOLIC [id number] 05:29:00* Test Item Value Reference Range Interpretation Comments SODIUM (BEAKER) (test code = 381) 137 meq/L 136-145 POTASSIUM (BEAKER) (test code = 379) 3.7 meq/L 3.5-5.1 CHLORIDE (BEAKER) (test code = 382) 94 meq/L 98-107 L CO2 (BEAKER) (test code = 355) 32 meq/L 22-29 H BLOOD UREA NITROGEN (BEAKER) (test code = 354) 102 mg/dL 7-21 H CREATININE (BEAKER) (test code = 358) 2.05 mg/dL 0.57-1.25 H GLUCOSE RANDOM (BEAKER) (test code = 652) 158 mg/dL 70-105 H CALCIUM (BEAKER) (test code = 697) 9.0 mg/dL 8.4-10.2 EGFR (BEAKER) (test code = 1092) 25 mL/min/1.73 sq m ESTIMATED GFR IS NOT ACCURATE CREATININE CLEARANCE IN PREDICTING GLOMERULAR FILTRATION RATE. ESTIMATED GFR IS NOT APPLICABLE FOR DIALYSIS PATIENTS. [id number] 05:28:00* Test Item Value Reference Range Interpretation Comments MAGNESIUM (BEAKER) (test code = 627) 1.9 mg/dL 1.6-2.6 CBC W/PLT COUNT & AUTO [id number] 05:01:00* Test Item Value Reference Range Interpretation Comments WHITE BLOOD CELL COUNT (BEAKER) (test code = 775) 6.7 K/ L 3.5- 10.5 RED BLOOD CELL COUNT (BEAKER) (test code = 761) 2.95 M/ L 3.93-5 .22 L HEMOGLOBIN (BEAKER) (test code = 410) 8.3 GM/DL 11.2-15.7 L HEMATOCRIT (BEAKER) (test code = 411) 25.4 % 34.1-44.9 L MEAN CORPUSCULAR VOLUME (BEAKER) (test code = 753) 86.1 fL 79. 4-94.8 MEAN CORPUSCULAR HEMOGLOBIN (BEAKER) (test code = 751) 28.1 pg 25.6-32.2 MEAN CORPUSCULAR HEMOGLOBIN CONC (BEAKER) (test code = 752) 32.7 GM/DL 32.2-35.5 RED CELL DISTRIBUTION WIDTH (BEAKER) (test code = 412) 15.9 % 11.7-14.4 H PLATELET COUNT (BEAKER) (test code = 756) 169 K/CU MM 150-450 MEAN PLATELET VOLUME (BEAKER) (test code = 754) 13.0 fL 9.4-12 .3 H NUCLEATED RED BLOOD CELLS (BEAKER) (test code = 413) 0 /100 WBC 0 -0 NEUTROPHILS RELATIVE PERCENT (BEAKER) (test code = 429) 41 % LYMPHOCYTES RELATIVE PERCENT (BEAKER) (test code = 430) 39 % MONOCYTES RELATIVE PERCENT (BEAKER) (test code = 431) 15 % EOSINOPHILS RELATIVE PERCENT (BEAKER) (test code = 432) 4 % BASOPHILS RELATIVE PERCENT (BEAKER) (test code = 437) 1 % NEUTROPHILS ABSOLUTE COUNT (BEAKER) (test code = 670) 2.74 K/ L 1.56-6.13 LYMPHOCYTES ABSOLUTE COUNT (BEAKER) (test code = 414) 2.62 K/ L 1.18-3.74 MONOCYTES ABSOLUTE COUNT (BEAKER) (test code = 415) 1.00 K/ L 0. 24-0.36 H EOSINOPHILS ABSOLUTE COUNT (BEAKER) (test code = 416) 0.27 K/ L 0.04-0.36 BASOPHILS ABSOLUTE COUNT (BEAKER) (test code = 417) 0.08 K/ L 0. 01-0.08 IMMATURE GRANULOCYTES-RELATIVE PERCENT (BEAKER) (test code = 2801) 0 % 0-1 POCT-GLUCOSE [id number] 21:13:00* Test Item Value Reference Range Interpretation Comments POC-GLUCOSE METER (BEAKER) (test code = 1538) 199 mg/dL 70-110 H TESTED AT [place] [id number] POCT-GLUCOSE [id number] 16:49:00* Test Item Value Reference Range Interpretation Comments POC-GLUCOSE METER (BEAKER) (test code = 1538) 172 mg/dL 70-110 H TESTED AT [place] [id number] POCT-GLUCOSE [id number] 12:35:00* Test Item Value Reference Range Interpretation Comments POC-GLUCOSE METER (BEAKER) (test code = 1538) 227 mg/dL 70-110 H TESTED AT [place] [id number] POCT-GLUCOSE [id number] 08:37:00* Test Item Value Reference Range Interpretation Comments POC-GLUCOSE METER (BEAKER) (test code = 1538) 171 mg/dL 70-110 H TESTED AT [address] [address] BASIC METABOLIC [id number] 06:15:00* Test Item Value Reference Range Interpretation Comments SODIUM (BEAKER) (test code = 381) 136 meq/L 136-145 POTASSIUM (BEAKER) (test code = 379) 4.2 meq/L 3.5-5.1 CHLORIDE (BEAKER) (test code = 382) 97 meq/L 98-107 L CO2 (BEAKER) (test code = 355) 27 meq/L 22-29 BLOOD UREA NITROGEN (BEAKER) (test code = 354) 95 mg/dL 7-21 H CREATININE (BEAKER) (test code = 358) 2.08 mg/dL 0.57-1.25 H GLUCOSE RANDOM (BEAKER) (test code = 652) 195 mg/dL 70-105 H CALCIUM (BEAKER) (test code = 697) 8.7 mg/dL 8.4-10.2 EGFR (BEAKER) (test code = 1092) 25 mL/min/1.73 sq m ESTIMATED GFR IS NOT ACCURATE CREATININE CLEARANCE IN PREDICTING GLOMERULAR FILTRATION RATE. ESTIMATED GFR IS NOT APPLICABLE FOR DIALYSIS PATIENTS. [id number] 06:13:00* Test Item Value Reference Range Interpretation Comments MAGNESIUM (BEAKER) (test code = 627) 2.0 mg/dL 1.6-2.6 CBC W/PLT COUNT & AUTO [id number] 05:15:00* Test Item Value Reference Range Interpretation Comments WHITE BLOOD CELL COUNT (BEAKER) (test code = 775) 6.3 K/ L 3.5- 10.5 RED BLOOD CELL COUNT (BEAKER) (test code = 761) 3.03 M/ L 3.93-5 .22 L HEMOGLOBIN (BEAKER) (test code = 410) 8.2 GM/DL 11.2-15.7 L HEMATOCRIT (BEAKER) (test code = 411) 26.7 % 34.1-44.9 L MEAN CORPUSCULAR VOLUME (BEAKER) (test code = 753) 88.1 fL 79. 4-94.8 MEAN CORPUSCULAR HEMOGLOBIN (BEAKER) (test code = 751) 27.1 pg 25.6-32.2 MEAN CORPUSCULAR HEMOGLOBIN CONC (BEAKER) (test code = 752) 30.7 GM/DL 32.2-35.5 L RED CELL DISTRIBUTION WIDTH (BEAKER) (test code = 412) 16.3 % 11.7-14.4 H PLATELET COUNT (BEAKER) (test code = 756) 171 K/CU MM 150-450 MEAN PLATELET VOLUME (BEAKER) (test code = 754) 13.4 fL 9.4-12 .3 H NUCLEATED RED BLOOD CELLS (BEAKER) (test code = 413) 0 /100 WBC 0 -0 NEUTROPHILS RELATIVE PERCENT (BEAKER) (test code = 429) 40 % LYMPHOCYTES RELATIVE PERCENT (BEAKER) (test code = 430) 39 % MONOCYTES RELATIVE PERCENT (BEAKER) (test code = 431) 15 % EOSINOPHILS RELATIVE PERCENT (BEAKER) (test code = 432) 4 % BASOPHILS RELATIVE PERCENT (BEAKER) (test code = 437) 1 % NEUTROPHILS ABSOLUTE COUNT (BEAKER) (test code = 670) 2.49 K/ L 1.56-6.13 LYMPHOCYTES ABSOLUTE COUNT (BEAKER) (test code = 414) 2.48 K/ L 1.18-3.74 MONOCYTES ABSOLUTE COUNT (BEAKER) (test code = 415) 0.95 K/ L 0. 24-0.36 H EOSINOPHILS ABSOLUTE COUNT (BEAKER) (test code = 416) 0.27 K/ L 0.04-0.36 BASOPHILS ABSOLUTE COUNT (BEAKER) (test code = 417) 0.09 K/ L 0. 01-0.08 H IMMATURE GRANULOCYTES-RELATIVE PERCENT (BEAKER) (test code = 2801) 0 % 0-1 POCT-GLUCOSE [id number] 21:27:00* Test Item Value Reference Range Interpretation Comments POC-GLUCOSE METER (BEAKER) (test code = 1538) 266 mg/dL 70-110 H TESTED AT [place] [id number] [facility] [address] POCT-GLUCOSE [id number] 18:05:00* Test Item Value Reference Range Interpretation Comments POC-GLUCOSE METER (BEAKER) (test code = 1538) 159 mg/dL 70-110 H TESTED AT [address] [address] PET, CARDIAC PERFUSION MULTIPLE STUDIES, REST AND [id number] 14:38:00 Reason for exam:->chfFINAL REPORT PROCEDURE: Rest/Stress MYOCARDIAL PERFUSION PET with regadenoson\\XA9\\ CPT CODE: 73516 INDICATION: Heart failure. Assess symptoms/risk factors of possible coronary artery disease. HISTORY: Cardiac risk factors: Diabetes, hypertension, obesity, hyperlipidemia, stroke. Other cardiovascular history: Heart failure. Recent cardiac symptoms: Dyspnea. Current cardiovascular-related medications: Metoprolol, Lasix, aspirin, atorvastatin, Plavix. PROTOCOL: Limited low-dose CT imaging was performed for attenuation correction. 39.5 mCi of Rb-82 chloride was injected iv at rest, and gated PET (positron emission tomography) images were obtained. Subsequently, 38.2 mCi of Rb-82 chloride was injected iv at expected peak pharmacologic effect, and gated PET images were obtained. PRELIMINARY STRESS TEST DATA FROM NONINVASIVE CARDIOLOGY: Pharmacologic stress was by 10-second iv infusion of 0.4 mg of regadenoson. Radiotracer was injected 30 seconds after start of stress. Heart rate was 63 beats/min at rest and 66 beats/min (40% of MPHR) at tracer injection. BP was 93/40 mmHg at rest and 108/72 mmHg at tracer injection. Stress was stopped for predetermined endpoint. The patient experienced no symptoms; treatment was not required. Preliminary ECG evaluation revealed sinus rhythm at rest and no ischemic changes with stress. (Final ECG interpretation and other stress and monitoring data are reported separately by Cardiology.) IMAGING FINDINGS: Study quality is good. Images obtained after rest and stress injections show normal LV activity. LV and RV volumes appear normal. Gated images obtained at rest and with stress show normal LV wall motion and thickening. LVEF at rest is 75%. LVEF at stress is 75%. IMPRESSION: 1. Normal study. 2. Appropriate pharmacologic stress. 3. Normal myocardial perfusion. 4. Normal resting LV function. No deterioration of function is noted with pharmacologic stress. 5. Normal extracardiac tracer distribution. 6. CT images show trace right-sided pleural effusion. NONINV ASIVE RISK STRATIFICATION: The above findings are considered low risk (<1% annual mortality rate) based on the following criterion:- Normal or small alise cardial perfusion defect at rest or with stress(JACC. 2012;59(9):857-81.) Signed : Noel Matamoros MDReport Verified Date/Time: 07/20/2018 14:38:38 Reading Locati on: [facility] 3rd [facility] [address] [facility] Reading Room E PROTEIN ELECTROPHORESIS, RANDOM 2018-07-20 13:51:00* Test Item Value Reference Range Interpretation Comments PROTEIN, URINE (BEAKER) (test code = 1569) < mg/dL 0-14 ALBUMIN URINE ELP (BEAKER) (test code = 1018) 40.3 % GAMMA GLOBULIN URINE (BEAKER) (test code = 1015) 59.7 % UPEP, ID-438 (BEAKER) (test code = 2604) No monoclonal bands detect ed. [id number] (BEAKER) (test code = 9032) Tala Bryan MD (electronic signature) PROTEIN ELECTROPHORESIS, [id number] 13:22:00* Test Item Value Reference Range Interpretation Comments ALBUMIN FRACTION (BEAKER) (test code = 405) 2.6 g/dL 3.5-5.5 L ALPHA 1 FRACTION (BEAKER) (test code = 389) 0.3 g/dL 0.2-0.4 ALPHA 2 FRACTION (BEAKER) (test code = 390) 0.7 g/dL 0.5-0.9 BETA FRACTION (BEAKER) (test code = 392) 1.0 g/dL 0.6-1.1 GAMMA GLOBULIN FRACTION (BEAKER) (test code = 391) 1.5 g/dL 0.7 -1.7 INTERPRETATION-119 (BEAKER) (test code = 2615) Decreas ed albumin, suggesting renal protein loss. Concurrent relative increase in globulin fractions suggests a component of mixed acute and chronic inflammation. No monoclonal bands detected. [id number] (BEAKER) (test code = 2616) Tala Bryan MD (electronic signature) PROTEIN TOTAL SERUM, SPEP (BEAKER) (test code = 2660) 6.1 gm/dL 6.0-8.3 POCT-GLUCOSE [id number] 13:15:00* Test Item Value Reference Range Interpretation Comments POC-GLUCOSE METER (BEAKER) (test code = 1538) 217 mg/dL 70-110 H TESTED AT [facility] [address] [facility] [address] POCT-GLUCOSE [id number] 08:44:00* Test Item Value Reference Range Interpretation Comments POC-GLUCOSE METER (BEAKER) (test code = 1538) 196 mg/dL 70-110 H TESTED AT [facility] [address] [facility] [address] BASIC METABOLIC [id number] 05:18:00* Test Item Value Reference Range Interpretation Comments SODIUM (BEAKER) (test code = 381) 139 meq/L 136-145 POTASSIUM (BEAKER) (test code = 379) 4.1 meq/L 3.5-5.1 CHLORIDE (BEAKER) (test code = 382) 100 meq/L 98-107 CO2 (BEAKER) (test code = 355) 30 meq/L 22-29 H BLOOD UREA NITROGEN (BEAKER) (test code = 354) 84 mg/dL 7-21 H CREATININE (BEAKER) (test code = 358) 1.97 mg/dL 0.57-1.25 H GLUCOSE RANDOM (BEAKER) (test code = 652) 188 mg/dL 70-105 H CALCIUM (BEAKER) (test code = 697) 8.7 mg/dL 8.4-10.2 EGFR (BEAKER) (test code = 1092) 26 mL/min/1.73 sq m ESTIMATED GFR IS NOT ACCURATE CREATININE CLEARANCE IN PREDICTING GLOMERULAR FILTRATION RATE. ESTIMATED GFR IS NOT APPLICABLE FOR DIALYSIS PATIENTS. [id number] 05:17:00* Test Item Value Reference Range Interpretation Comments MAGNESIUM (BEAKER) (test code = 627) 2.2 mg/dL 1.6-2.6 CBC W/PLT COUNT & AUTO [id number] 04:50:00* Test Item Value Reference Range Interpretation Comments WHITE BLOOD CELL COUNT (BEAKER) (test code = 775) 6.7 K/ L 3.5- 10.5 RED BLOOD CELL COUNT (BEAKER) (test code = 761) 2.86 M/ L 3.93-5 .22 L HEMOGLOBIN (BEAKER) (test code = 410) 7.8 GM/DL 11.2-15.7 L HEMATOCRIT (BEAKER) (test code = 411) 25.0 % 34.1-44.9 L MEAN CORPUSCULAR VOLUME (BEAKER) (test code = 753) 87.4 fL 79. 4-94.8 MEAN CORPUSCULAR HEMOGLOBIN (BEAKER) (test code = 751) 27.3 pg 25.6-32.2 MEAN CORPUSCULAR HEMOGLOBIN CONC (BEAKER) (test code = 752) 31.2 GM/DL 32.2-35.5 L RED CELL DISTRIBUTION WIDTH (BEAKER) (test code = 412) 16.1 % 11.7-14.4 H PLATELET COUNT (BEAKER) (test code = 756) 171 K/CU MM 150-450 MEAN PLATELET VOLUME (BEAKER) (test code = 754) 13.5 fL 9.4-12 .3 H NUCLEATED RED BLOOD CELLS (BEAKER) (test code = 413) 0 /100 WBC 0 -0 NEUTROPHILS RELATIVE PERCENT (BEAKER) (test code = 429) 43 % LYMPHOCYTES RELATIVE PERCENT (BEAKER) (test code = 430) 40 % MONOCYTES RELATIVE PERCENT (BEAKER) (test code = 431) 13 % EOSINOPHILS RELATIVE PERCENT (BEAKER) (test code = 432) 3 % BASOPHILS RELATIVE PERCENT (BEAKER) (test code = 437) 1 % NEUTROPHILS ABSOLUTE COUNT (BEAKER) (test code = 670) 2.87 K/ L 1.56-6.13 LYMPHOCYTES ABSOLUTE COUNT (BEAKER) (test code = 414) 2.70 K/ L 1.18-3.74 MONOCYTES ABSOLUTE COUNT (BEAKER) (test code = 415) 0.88 K/ L 0. 24-0.36 H EOSINOPHILS ABSOLUTE COUNT (BEAKER) (test code = 416) 0.20 K/ L 0.04-0.36 BASOPHILS ABSOLUTE COUNT (BEAKER) (test code = 417) 0.06 K/ L 0. 01-0.08 IMMATURE GRANULOCYTES-RELATIVE PERCENT (BEAKER) (test code = 2801) 0 % 0-1 POCT-GLUCOSE [id number] 21:38:00* Test Item Value Reference Range Interpretation Comments POC-GLUCOSE METER (BEAKER) (test code = 1538) 198 mg/dL 70-110 H TESTED AT [facility] [address] [facility] [address] POCT-GLUCOSE [id number] 17:52:00* Test Item Value Reference Range Interpretation Comments POC-GLUCOSE METER (BEAKER) (test code = 1538) 200 mg/dL 70-110 H TESTED AT [facility] [address] [facility] [address] [id number] 14:10:00* Test Item Value Reference Range Interpretation Comments FERRITIN (BEAKER) (test code = 361) 95 ng/mL 5-275 VITAMIN B12 AND [id number] 14:10:00* Test Item Value Reference Range Interpretation Comments VITAMIN B12 (BEAKER) (test code = 774) 393 pg/mL 213-816 FOLATE (BEAKER) (test code = 362) 7.5 ng/mL >=7.0 IRON, TIBC, % SAT. (WITHOUT FERRITIN)2018-07-19 13:17:00* Test Item Value Reference Range Interpretation Comments IRON (BEAKER) (test code = 547) 37 ug/dL 40-160 L TOTAL IRON BINDING CAPACITY (BEAKER) (test code = 769) 393 ug/dL 250-450 IRON % SATURATION (2) (BEAKER) (test code = 2590) 9 % 20-5 5 L [id number] 13:15:00* Test Item Value Reference Range Interpretation Comments MAGNESIUM (BEAKER) (test code = 627) 2.3 mg/dL 1.6-2.6 BASIC METABOLIC [id number] 13:15:00* Test Item Value Reference Range Interpretation Comments SODIUM (BEAKER) (test code = 381) 140 meq/L 136-145 POTASSIUM (BEAKER) (test code = 379) 4.0 meq/L 3.5-5.1 CHLORIDE (BEAKER) (test code = 382) 101 meq/L 98-107 CO2 (BEAKER) (test code = 355) 29 meq/L 22-29 BLOOD UREA NITROGEN (BEAKER) (test code = 354) 75 mg/dL 7-21 H CREATININE (BEAKER) (test code = 358) 1.65 mg/dL 0.57-1.25 H GLUCOSE RANDOM (BEAKER) (test code = 652) 112 mg/dL 70-105 H CALCIUM (BEAKER) (test code = 697) 8.8 mg/dL 8.4-10.2 EGFR (BEAKER) (test code = 1092) 32 mL/min/1.73 sq m ESTIMATED GFR IS NOT ACCURATE CREATININE CLEARANCE IN PREDICTING GLOMERULAR FILTRATION RATE. ESTIMATED GFR IS NOT APPLICABLE FOR DIALYSIS PATIENTS. POCT-GLUCOSE [id number] 13:05:00* Test Item Value Reference Range Interpretation Comments POC-GLUCOSE METER (BEAKER) (test code = 1538) 147 mg/dL 70-110 H TESTED AT [facility] [address] [facility] [address] RETICULOCYTE [id number] 13:02:00* Test Item Value Reference Range Interpretation Comments RETICULOCYTE COUNT PCT (BEAKER) (test code = 575) 1.6 % 0.5- 1.7 CBC W/PLT COUNT & AUTO [id number] 13:02:00* Test Item Value Reference Range Interpretation Comments WHITE BLOOD CELL COUNT (BEAKER) (test code = 775) 6.2 K/ L 3.5- 10.5 RED BLOOD CELL COUNT (BEAKER) (test code = 761) 2.83 M/ L 3.93-5 .22 L HEMOGLOBIN (BEAKER) (test code = 410) 7.9 GM/DL 11.2-15.7 L HEMATOCRIT (BEAKER) (test code = 411) 25.0 % 34.1-44.9 L MEAN CORPUSCULAR VOLUME (BEAKER) (test code = 753) 88.3 fL 79. 4-94.8 MEAN CORPUSCULAR HEMOGLOBIN (BEAKER) (test code = 751) 27.9 pg 25.6-32.2 MEAN CORPUSCULAR HEMOGLOBIN CONC (BEAKER) (test code = 752) 31.6 GM/DL 32.2-35.5 L RED CELL DISTRIBUTION WIDTH (BEAKER) (test code = 412) 16.2 % 11.7-14.4 H PLATELET COUNT (BEAKER) (test code = 756) 167 K/CU MM 150-450 MEAN PLATELET VOLUME (BEAKER) (test code = 754) 13.3 fL 9.4-12 .3 H NUCLEATED RED BLOOD CELLS (BEAKER) (test code = 413) 0 /100 WBC 0 -0 NEUTROPHILS RELATIVE PERCENT (BEAKER) (test code = 429) 53 % LYMPHOCYTES RELATIVE PERCENT (BEAKER) (test code = 430) 30 % MONOCYTES RELATIVE PERCENT (BEAKER) (test code = 431) 14 % EOSINOPHILS RELATIVE PERCENT (BEAKER) (test code = 432) 2 % BASOPHILS RELATIVE PERCENT (BEAKER) (test code = 437) 1 % NEUTROPHILS ABSOLUTE COUNT (BEAKER) (test code = 670) 3.28 K/ L 1.56-6.13 LYMPHOCYTES ABSOLUTE COUNT (BEAKER) (test code = 414) 1.83 K/ L 1.18-3.74 MONOCYTES ABSOLUTE COUNT (BEAKER) (test code = 415) 0.83 K/ L 0. 24-0.36 H EOSINOPHILS ABSOLUTE COUNT (BEAKER) (test code = 416) 0.12 K/ L 0.04-0.36 BASOPHILS ABSOLUTE COUNT (BEAKER) (test code = 417) 0.07 K/ L 0. 01-0.08 IMMATURE GRANULOCYTES-RELATIVE PERCENT (BEAKER) (test code = 2801) 1 % 0-1 POCT-GLUCOSE [id number] 10:13:00* Test Item Value Reference Range Interpretation Comments POC-GLUCOSE METER (BEAKER) (test code = 1538) 122 mg/dL 70-110 H TESTED AT [facility] [address] [facility] [address] [address], CHEST, WITHOUT [id number] 08:32:00FINAL REPORT TECHNIQUE: CT scan of the chest WITHOUT intravenous contrast. Dose modulation, iterative reconstruction, and/or weight-based adjustment of the mA/kV was utilized to reduce the radiation dose to as low as reasonably achievable. INDICATION: Persistent cough. COMPARISON: CT from 05/26/2018. FINDINGS: ABSENCE OF INTRAVENOUS CONTRAST DECREASES SENSITIVITY FOR DETECTION OF FOCAL LESIONS AND VASCULAR PATHOLOGY. LINES/TUBES: None. LUNGS AND AIRWAYS: There is scattered atelectasis throughout both lungs. There are intermittent areas of groundglass opacity and sparing which are likely due to air-trapping. Calcified granuloma in the left base. PLEURA: Small right pleural effusion with subsegmental atelectasis. HEART AND MEDIASTINUM: The visualized thyroid gland is normal. No significant mediastinal, hilar, or axillary lymphadenopathy. Biatrial cardiac enlargement. Severe coronary arterial calcifications. The main pulmonary artery measuring up to 3.1 cm. SOFT TISSUES AND BONES: Unremarkable. UPPER AB DOMEN: Unremarkable. IMPRESSION: 1.Small right pleural effusion with scattered bilateral atelectasis. The portions which were visualized on the CT from 018 are unchanged. 2.There are some intermittent areas of groundglass opacity wi th other areas of relative sparing which are most likely due to air trapping but indeterminate. 3.Severe coronary arterial calcifications. Signed: Gabriel Wood MD Report Verified Date/Time: 07/19/2018 08:32:54 Reading Location: [facility] [id number] [facility] Body Reading Room Electronically signed by: GABRIEL WOOD MD on 2017 08:32 AM POCT-GLUCOSE [id number] 21:37:00* Test Item Value Reference Range Interpretation Comments POC-GLUCOSE METER (BEAKER) (test code = 1538) 125 mg/dL 70-110 H TESTED AT [facility] [address] [place] [id number] URINALYSIS WITH MICROSCOPIC IF [id number] 19:02:00* Test Item Value Reference Range Interpretation Comments COLOR (BEAKER) (test code = 470) Light Yellow CLARITY (BEAKER) (test code = 469) Clear SPECIFIC GRAVITY UA (BEAKER) (test code = 468) 1.007 1.001-1 .035 PH UA (BEAKER) (test code = 467) 7.0 5.0-8.0 PROTEIN UA (BEAKER) (test code = 464) Negative Negative GLUCOSE UA (BEAKER) (test code = 365) Negative Negative KETONES UA (BEAKER) (test code = 371) Negative Negative BILIRUBIN UA (BEAKER) (test code = 462) Negative Negative BLOOD UA (BEAKER) (test code = 461) Negative Negative NITRITE UA (BEAKER) (test code = 465) Negative Negative LEUKOCYTE ESTERASE UA (BEAKER) (test code = 466) Negative Negat gil UROBILINOGEN UA (BEAKER) (test code = 463) 0.2 mg/dL 0.2-1.0 SOURCE(BEAKER) (test code = 2795) B-TYPE NATRIURETIC FACTOR (BNP)2018-07-18 17:41:00* Test Item Value Reference Range Interpretation Comments B-TYPE NATRIURETIC PEPTIDE (BEAKER) (test code = 700) 283 pg/mL 0-100 H PT/[id number] 17:38:00* Test Item Value Reference Range Interpretation Comments PROTIME (BEAKER) (test code = 759) 15.5 seconds 11.7-14.7 H INR (BEAKER) (test code = 370) 1.2 <=5.9 PARTIAL THROMBOPLASTIN TIME (BEAKER) (test code = 760) 27.5 seconds 22.5-36.0 RECOMMENDED COUMADIN/WARFARIN INR THERAPY RANGESSTANDARD DOSE: 2.0 - 3.0 Inclu heidy: PROPHYLAXIS for venous thrombosis, systemic embolization; TREATMENT for donavan ous thrombosis and/or pulmonary embolus.HIGH RISK: Target INR is 2.5-3.5 for pat ients with mechanical heart valves.[id number] 17:35:00* Test Item Value Reference Range Interpretation Comments MAGNESIUM (BEAKER) (test code = 627) 2.0 mg/dL 1.6-2.6 COMPREHENSIVE METABOLIC [id number] 17:35:00* Test Item Value Reference Range Interpretation Comments TOTAL PROTEIN (BEAKER) (test code = 770) 7.3 gm/dL 6.0-8.3 ALBUMIN (BEAKER) (test code = 1145) 3.1 g/dL 3.5-5.0 L ALKALINE PHOSPHATASE (BEAKER) (test code = 346) 116 U/L 40-150 BILIRUBIN TOTAL (BEAKER) (test code = 377) 0.4 mg/dL 0.2-1.2 SODIUM (BEAKER) (test code = 381) 138 meq/L 136-145 POTASSIUM (BEAKER) (test code = 379) 4.6 meq/L 3.5-5.1 CHLORIDE (BEAKER) (test code = 382) 101 meq/L 98-107 CO2 (BEAKER) (test code = 355) 30 meq/L 22-29 H BLOOD UREA NITROGEN (BEAKER) (test code = 354) 72 mg/dL 7-21 H CREATININE (BEAKER) (test code = 358) 1.58 mg/dL 0.57-1.25 H GLUCOSE RANDOM (BEAKER) (test code = 652) 88 mg/dL 70-105 CALCIUM (BEAKER) (test code = 697) 8.9 mg/dL 8.4-10.2 AST (SGOT) (BEAKER) (test code = 353) 31 U/L 5-34 ALT (SGPT) (BEAKER) (test code = 347) 27 U/L 6-55 EGFR (BEAKER) (test code = 1092) 34 mL/min/1.73 sq m ESTIMATED GFR IS NOT ACCURATE CREATININE CLEARANCE IN PREDICTING GLOMERULAR FILTRATION RATE. ESTIMATED GFR IS NOT APPLICABLE FOR DIALYSIS PATIENTS. CBC W/PLT COUNT & AUTO [id number] 17:20:00* Test Item Value Reference Range Interpretation Comments WHITE BLOOD CELL COUNT (BEAKER) (test code = 775) 6.6 K/ L 3.5- 10.5 RED BLOOD CELL COUNT (BEAKER) (test code = 761) 3.09 M/ L 3.93-5 .22 L HEMOGLOBIN (BEAKER) (test code = 410) 8.5 GM/DL 11.2-15.7 L HEMATOCRIT (BEAKER) (test code = 411) 27.2 % 34.1-44.9 L MEAN CORPUSCULAR VOLUME (BEAKER) (test code = 753) 88.0 fL 79. 4-94.8 MEAN CORPUSCULAR HEMOGLOBIN (BEAKER) (test code = 751) 27.5 pg 25.6-32.2 MEAN CORPUSCULAR HEMOGLOBIN CONC (BEAKER) (test code = 752) 31.3 GM/DL 32.2-35.5 L RED CELL DISTRIBUTION WIDTH (BEAKER) (test code = 412) 15.9 % 11.7-14.4 H PLATELET COUNT (BEAKER) (test code = 756) 193 K/CU MM 150-450 MEAN PLATELET VOLUME (BEAKER) (test code = 754) 12.5 fL 9.4-12 .3 H NUCLEATED RED BLOOD CELLS (BEAKER) (test code = 413) 0 /100 WBC 0 -0 NEUTROPHILS RELATIVE PERCENT (BEAKER) (test code = 429) 61 % LYMPHOCYTES RELATIVE PERCENT (BEAKER) (test code = 430) 23 % MONOCYTES RELATIVE PERCENT (BEAKER) (test code = 431) 13 % EOSINOPHILS RELATIVE PERCENT (BEAKER) (test code = 432) 2 % BASOPHILS RELATIVE PERCENT (BEAKER) (test code = 437) 1 % NEUTROPHILS ABSOLUTE COUNT (BEAKER) (test code = 670) 4.05 K/ L 1.56-6.13 LYMPHOCYTES ABSOLUTE COUNT (BEAKER) (test code = 414) 1.54 K/ L 1.18-3.74 MONOCYTES ABSOLUTE COUNT (BEAKER) (test code = 415) 0.83 K/ L 0. 24-0.36 H EOSINOPHILS ABSOLUTE COUNT (BEAKER) (test code = 416) 0.12 K/ L 0.04-0.36 BASOPHILS ABSOLUTE COUNT (BEAKER) (test code = 417) 0.06 K/ L 0. 01-0.08 IMMATURE GRANULOCYTES-RELATIVE PERCENT (BEAKER) (test code = 2801) 0 % 0-1 RAD, CHEST, 1 VIEW, NON [id number] 16:52:00Reason for exam:->chest painIs the patient ?->UnknownShould this be performed at the bedside?->YesFINAL REPORT Comparison: 05/23/2018 Technique: Single view of the chest FINDINGS: There is airspace disease in the right mid and lower lung which could represent atelectasis or pneumonitis. Given relatively similar ap pearance compared to the previous exam close follow-up is recommended, and/or ch est CT to exclude underlying mass. Curvilinear density in the left midlung may r epresent atelectasis. Otherwise lungs are clear. Cardiac silhouette is prominent . No acute skeletal abnormality. Signed: Chip Yang MDReport Verified Date/Time : 07/18/2018 16:52:27 Reading Location: [facility] C013T Transitional Reading Room E PROTEIN ELECTROPHORESIS, [id number] 14:06:00* Test Item Value Reference Range Interpretation Comments PROTEIN, URINE (BEAKER) (test code = 1569) < mg/dL 0-14 ALBUMIN URINE ELP (BEAKER) (test code = 1018) 88.9 % GAMMA GLOBULIN URINE (BEAKER) (test code = 1015) 11.1 % UPEP, ID-438 (BEAKER) (test code = 2604) No monoclonal bands detect ed. [id number] (BEAKER) (test code = 2605) Tala Bryan MD (electronic signature) URINE IMMUNOFIXATION, [id number] 14:04:00* Test Item Value Reference Range Interpretation Comments PROTEIN, URINE (BEAKER) (test code = 1569) < mg/dL 0-14 ALBUMIN URINE ELP (BEAKER) (test code = 1018) 88.9 % GAMMA GLOBULIN URINE (BEAKER) (test code = 1015) 11.1 % URINE HONORIO ID-402 (BEAKER) (test code = 2602) No monocl onal proteins or monoclonal free light chains detected. [id number] (BEAKER) (test code = 2603) Tala Bryan MD (electronic signature) PROTEIN ELECTROPHORESIS, [id number] 13:58:00* Test Item Value Reference Range Interpretation Comments ALBUMIN FRACTION (BEAKER) (test code = 405) 3.3 g/dL 3.5-5.5 L ALPHA 1 FRACTION (BEAKER) (test code = 389) 0.3 g/dL 0.2-0.4 ALPHA 2 FRACTION (BEAKER) (test code = 390) 0.8 g/dL 0.5-0.9 BETA FRACTION (BEAKER) (test code = 392) 1.3 g/dL 0.6-1.1 H GAMMA GLOBULIN FRACTION (BEAKER) (test code = 391) 1.4 g/dL 0.7 -1.7 INTERPRETATION-119 (BEAKER) (test code = 2615) All fra ctions present in expected distribution. No monoclonal bands detected. [id number] (BEAKER) (test code = 2616) Tala Bryan MD (electronic signature) PROTEIN TOTAL SERUM, SPEP (BEAKER) (test code = 2660) 7.1 gm/dL 6.0-8.3 POCT-GLUCOSE [id number] 08:53:00* Test Item Value Reference Range Interpretation Comments POC-GLUCOSE METER (BEAKER) (test code = 1538) 140 mg/dL 70-110 H TESTED AT [facility] [address] [facility] [address] BASIC METABOLIC [id number] 06:00:00* Test Item Value Reference Range Interpretation Comments SODIUM (BEAKER) (test code = 381) 138 meq/L 136-145 POTASSIUM (BEAKER) (test code = 379) 4.3 meq/L 3.5-5.1 CHLORIDE (BEAKER) (test code = 382) 102 meq/L 98-107 CO2 (BEAKER) (test code = 355) 26 meq/L 22-29 BLOOD UREA NITROGEN (BEAKER) (test code = 354) 84 mg/dL 7-21 H CREATININE (BEAKER) (test code = 358) 1.85 mg/dL 0.57-1.25 H GLUCOSE RANDOM (BEAKER) (test code = 652) 121 mg/dL 70-105 H CALCIUM (BEAKER) (test code = 697) 9.5 mg/dL 8.4-10.2 EGFR (BEAKER) (test code = 1092) 28 mL/min/1.73 sq m ESTIMATED GFR IS NOT ACCURATE CREATININE CLEARANCE IN PREDICTING GLOMERULAR FILTRATION RATE. ESTIMATED GFR IS NOT APPLICABLE FOR DIALYSIS PATIENTS. URIC [id number] 05:54:00* Test Item Value Reference Range Interpretation Comments URIC ACID (BEAKER) (test code = 773) 10.8 mg/dL 2.6-7.2 H [id number] 05:54:00* Test Item Value Reference Range Interpretation Comments MAGNESIUM (BEAKER) (test code = 627) 2.0 mg/dL 1.6-2.6 CBC W/PLT COUNT & AUTO [id number] 05:32:00* Test Item Value Reference Range Interpretation Comments WHITE BLOOD CELL COUNT (BEAKER) (test code = 775) 8.7 K/ L 3.5- 10.5 RED BLOOD CELL COUNT (BEAKER) (test code = 761) 2.75 M/ L 3.93-5 .22 L HEMOGLOBIN (BEAKER) (test code = 410) 8.0 GM/DL 11.2-15.7 L HEMATOCRIT (BEAKER) (test code = 411) 25.5 % 34.1-44.9 L MEAN CORPUSCULAR VOLUME (BEAKER) (test code = 753) 92.7 fL 79. 4-94.8 MEAN CORPUSCULAR HEMOGLOBIN (BEAKER) (test code = 751) 29.1 pg 25.6-32.2 MEAN CORPUSCULAR HEMOGLOBIN CONC (BEAKER) (test code = 752) 31.4 GM/DL 32.2-35.5 L RED CELL DISTRIBUTION WIDTH (BEAKER) (test code = 412) 13.0 % 11.7-14.4 PLATELET COUNT (BEAKER) (test code = 756) 273 K/CU MM 150-450 MEAN PLATELET VOLUME (BEAKER) (test code = 754) 11.8 fL 9.4-12 .3 NUCLEATED RED BLOOD CELLS (BEAKER) (test code = 413) 0 /100 WBC 0 -0 NEUTROPHILS RELATIVE PERCENT (BEAKER) (test code = 429) 49 % LYMPHOCYTES RELATIVE PERCENT (BEAKER) (test code = 430) 33 % MONOCYTES RELATIVE PERCENT (BEAKER) (test code = 431) 15 % EOSINOPHILS RELATIVE PERCENT (BEAKER) (test code = 432) 3 % BASOPHILS RELATIVE PERCENT (BEAKER) (test code = 437) 1 % NEUTROPHILS ABSOLUTE COUNT (BEAKER) (test code = 670) 4.23 K/ L 1.56-6.13 LYMPHOCYTES ABSOLUTE COUNT (BEAKER) (test code = 414) 2.85 K/ L 1.18-3.74 MONOCYTES ABSOLUTE COUNT (BEAKER) (test code = 415) 1.27 K/ L 0. 24-0.36 H EOSINOPHILS ABSOLUTE COUNT (BEAKER) (test code = 416) 0.27 K/ L 0.04-0.36 BASOPHILS ABSOLUTE COUNT (BEAKER) (test code = 417) 0.06 K/ L 0. 01-0.08 IMMATURE GRANULOCYTES-RELATIVE PERCENT (BEAKER) (test code = 2801) 0 % 0-1 POCT-GLUCOSE [id number] 20:43:00* Test Item Value Reference Range Interpretation Comments POC-GLUCOSE METER (BEAKER) (test code = 1538) 186 mg/dL 70-110 H TESTED AT [facility] [address] [facility] [address] TISSUE [id number] 18:38:00Surgical Pathology Report Case: [id number] Authorizing Provider: Max Snyder MD Collected: 05/27/2018 1033 Ordering Location: [address] Received: 05/27/2018 1354 Service Pathologist: Muriel Stephens MD Specimens: A) - Small Bowel, NOS, bx r/o infiltrated disease B) - Biopsy, Gastric, antrum and body r/o gastritis C) - Biopsy, Esophagus, 38 cm ireg z-line r/o barrets D) - Colon Biopsy, Random, r/o microscopic colitis A. SMALL BOWEL, BIOPSY: - SMALL BOWEL MUCOSA WITH NO SIGNIFICANT PATHOLOGIC CHANGES - NEGATIVE FOR VILLOUS BLUNTING - NEGATIVE FOR SIGNIFICANT INCREASE OF INTRAEPITHELIAL LYMPHOCYTESB. STOMACH, BIOPSY: - FOCAL INTESTINAL METAPLASIA - CHRONIC INACTIVE GASTRITIS - FEATURES SUGGESTIVE OF REACTIVE GASTROPATHY/ADJACENT ULCER - NEGATIVE FOR H. PYLORI BY WARTHIN-STARRY STAINC. ESOPHAGUS, BIOPSY: - SQUAMOCOLUMNAR MUCOSA, NEGATIVE FOR INTESTINAL METAPLASIA - GASTRIC TYPE MUCOSA WITH CHRONIC ACTIVE INFLAMMATION AND REACTIVE EPITHELIAL CHANGES - SQUAMOUS EPITHELIUM WITH REACTIVE CHANGES, SUGGESTIVE OF REFLUX ESOPHAGITISD. COLON, BIOPSY: - NO SIGNIFICANT PATHOLOGIC CHANGES - NEGATIVE FOR DEFINITIVE EVIDENCE OF LYMPHOCYTIC OR COLLAGENOUS COLIITIS Signing Pathologist Direct Phone Line: [phone] signed by Muriel Stephens MD on 05/28/2018 at 6:38 [id number], [id number] bleed and anemia, rule out infiltrative disease, rule out gastritis, rule Jesus's, rule out microscopic colitisA. Small bowel biopsy; B. Gastric antrum and body biopsy; C. Esophagus biopsy, irregular Z line at 38 cm; D. Random colon biopsyThe specimen is received in four containers of formalin all labeled with the patient's information. Part A labeled "small bowel biopsy" consists of five fragments of mulligan tissue ranging from 0.1 to 0.3 cm, submitted A1. Part B labeled "gastric antrum and body biopsy" consists of four fragments of mulligan-white soft tissue ranging from 0.1 to 0.2 cm, submitted B1. Part C labeled "esophagus biopsy, irregular Z line at 38 cm" consists of three fragments of mulligan tissue ranging from 0.2 to 0.3 cm, submitted C1.Part D labeled "random colon biopsy" consists of five fragments of mulligan tissue ranging from 0.1 to 0.2 cm, submitted entirely D1. CG/pl POCT-GLUCOSE [id number] 17:26:00* Test Item Value Reference Range Interpretation Comments POC-GLUCOSE METER (BEAKER) (test code = 1538) 132 mg/dL 70-110 H TESTED AT [address] [address] POCT-GLUCOSE [id number] 13:30:00* Test Item Value Reference Range Interpretation Comments POC-GLUCOSE METER (BEAKER) (test code = 1538) 166 mg/dL 70-110 H TESTED AT [address] [address] POCT-GLUCOSE [id number] 07:28:00* Test Item Value Reference Range Interpretation Comments POC-GLUCOSE METER (BEAKER) (test code = 1538) 156 mg/dL 70-110 H TESTED AT [address] [address] BASIC METABOLIC [id number] 06:10:00* Test Item Value Reference Range Interpretation Comments SODIUM (BEAKER) (test code = 381) 139 meq/L 136-145 POTASSIUM (BEAKER) (test code = 379) 4.6 meq/L 3.5-5.1 CHLORIDE (BEAKER) (test code = 382) 104 meq/L 98-107 CO2 (BEAKER) (test code = 355) 24 meq/L 22-29 BLOOD UREA NITROGEN (BEAKER) (test code = 354) 81 mg/dL 7-21 H CREATININE (BEAKER) (test code = 358) 1.84 mg/dL 0.57-1.25 H GLUCOSE RANDOM (BEAKER) (test code = 652) 163 mg/dL 70-105 H CALCIUM (BEAKER) (test code = 697) 9.6 mg/dL 8.4-10.2 EGFR (BEAKER) (test code = 1092) 28 mL/min/1.73 sq m ESTIMATED GFR IS NOT ACCURATE CREATININE CLEARANCE IN PREDICTING GLOMERULAR FILTRATION RATE. ESTIMATED GFR IS NOT APPLICABLE FOR DIALYSIS PATIENTS. [id number] 05:56:00* Test Item Value Reference Range Interpretation Comments MAGNESIUM (BEAKER) (test code = 627) 2.2 mg/dL 1.6-2.6 CBC W/PLT COUNT & AUTO [id number] 05:09:00* Test Item Value Reference Range Interpretation Comments WHITE BLOOD CELL COUNT (BEAKER) (test code = 775) 7.8 K/ L 3.5- 10.5 RED BLOOD CELL COUNT (BEAKER) (test code = 761) 2.70 M/ L 3.93-5 .22 L HEMOGLOBIN (BEAKER) (test code = 410) 7.7 GM/DL 11.2-15.7 L HEMATOCRIT (BEAKER) (test code = 411) 25.3 % 34.1-44.9 L MEAN CORPUSCULAR VOLUME (BEAKER) (test code = 753) 93.7 fL 79. 4-94.8 MEAN CORPUSCULAR HEMOGLOBIN (BEAKER) (test code = 751) 28.5 pg 25.6-32.2 MEAN CORPUSCULAR HEMOGLOBIN CONC (BEAKER) (test code = 752) 30.4 GM/DL 32.2-35.5 L RED CELL DISTRIBUTION WIDTH (BEAKER) (test code = 412) 13.0 % 11.7-14.4 PLATELET COUNT (BEAKER) (test code = 756) 250 K/CU MM 150-450 MEAN PLATELET VOLUME (BEAKER) (test code = 754) 12.4 fL 9.4-12 .3 H NUCLEATED RED BLOOD CELLS (BEAKER) (test code = 413) 0 /100 WBC 0 -0 NEUTROPHILS RELATIVE PERCENT (BEAKER) (test code = 429) 53 % LYMPHOCYTES RELATIVE PERCENT (BEAKER) (test code = 430) 29 % MONOCYTES RELATIVE PERCENT (BEAKER) (test code = 431) 15 % EOSINOPHILS RELATIVE PERCENT (BEAKER) (test code = 432) 2 % BASOPHILS RELATIVE PERCENT (BEAKER) (test code = 437) 1 % NEUTROPHILS ABSOLUTE COUNT (BEAKER) (test code = 670) 4.14 K/ L 1.56-6.13 LYMPHOCYTES ABSOLUTE COUNT (BEAKER) (test code = 414) 2.29 K/ L 1.18-3.74 MONOCYTES ABSOLUTE COUNT (BEAKER) (test code = 415) 1.16 K/ L 0. 24-0.36 H EOSINOPHILS ABSOLUTE COUNT (BEAKER) (test code = 416) 0.17 K/ L 0.04-0.36 BASOPHILS ABSOLUTE COUNT (BEAKER) (test code = 417) 0.06 K/ L 0. 01-0.08 IMMATURE GRANULOCYTES-RELATIVE PERCENT (BEAKER) (test code = 2801) 0 % 0-1 POCT-GLUCOSE [id number] 20:46:00* Test Item Value Reference Range Interpretation Comments POC-GLUCOSE METER (BEAKER) (test code = 1538) 257 mg/dL 70-110 H TESTED AT [address] [address] PROTEIN, RANDOM [id number] 13:31:00* Test Item Value Reference Range Interpretation Comments PROTEIN, URINE (BEAKER) (test code = 1569) < mg/dL 0-14 CREATININE, RANDOM [id number] 13:16:00* Test Item Value Reference Range Interpretation Comments CREATININE URINE (BEAKER) (test code = 375) 11.7 mg/dL Reference Range: No NormalsPOCT-GLUCOSE [id number] 12:48:00* Test Item Value Reference Range Interpretation Comments POC-GLUCOSE METER (BEAKER) (test code = 1538) 151 mg/dL 70-110 H TESTED AT [address] [address] POCT-GLUCOSE [id number] 12:00:00* Test Item Value Reference Range Interpretation Comments POC-GLUCOSE METER (BEAKER) (test code = 1538) 191 mg/dL 70-110 H TESTED AT [address] [address] POCT-GLUCOSE [id number] 07:49:00* Test Item Value Reference Range Interpretation Comments POC-GLUCOSE METER (BEAKER) (test code = 1538) 165 mg/dL 70-110 H TESTED AT [address] [address] BASIC METABOLIC [id number] 06:26:00* Test Item Value Reference Range Interpretation Comments SODIUM (BEAKER) (test code = 381) 138 meq/L 136-145 POTASSIUM (BEAKER) (test code = 379) 5.1 meq/L 3.5-5.1 CHLORIDE (BEAKER) (test code = 382) 107 meq/L 98-107 CO2 (BEAKER) (test code = 355) 22 meq/L 22-29 BLOOD UREA NITROGEN (BEAKER) (test code = 354) 89 mg/dL 7-21 H CREATININE (BEAKER) (test code = 358) 1.88 mg/dL 0.57-1.25 H GLUCOSE RANDOM (BEAKER) (test code = 652) 132 mg/dL 70-105 H CALCIUM (BEAKER) (test code = 697) 9.2 mg/dL 8.4-10.2 EGFR (BEAKER) (test code = 1092) 28 mL/min/1.73 sq m ESTIMATED GFR IS NOT ACCURATE CREATININE CLEARANCE IN PREDICTING GLOMERULAR FILTRATION RATE. ESTIMATED GFR IS NOT APPLICABLE FOR DIALYSIS PATIENTS. [id number] 06:21:00* Test Item Value Reference Range Interpretation Comments MAGNESIUM (BEAKER) (test code = 627) 2.4 mg/dL 1.6-2.6 CBC W/PLT COUNT & AUTO [id number] 05:45:00* Test Item Value Reference Range Interpretation Comments WHITE BLOOD CELL COUNT (BEAKER) (test code = 775) 7.2 K/ L 3.5- 10.5 RED BLOOD CELL COUNT (BEAKER) (test code = 761) 2.84 M/ L 3.93-5 .22 L HEMOGLOBIN (BEAKER) (test code = 410) 8.2 GM/DL 11.2-15.7 L HEMATOCRIT (BEAKER) (test code = 411) 26.7 % 34.1-44.9 L MEAN CORPUSCULAR VOLUME (BEAKER) (test code = 753) 94.0 fL 79. 4-94.8 MEAN CORPUSCULAR HEMOGLOBIN (BEAKER) (test code = 751) 28.9 pg 25.6-32.2 MEAN CORPUSCULAR HEMOGLOBIN CONC (BEAKER) (test code = 752) 30.7 GM/DL 32.2-35.5 L RED CELL DISTRIBUTION WIDTH (BEAKER) (test code = 412) 13.1 % 11.7-14.4 PLATELET COUNT (BEAKER) (test code = 756) 279 K/CU MM 150-450 MEAN PLATELET VOLUME (BEAKER) (test code = 754) 12.4 fL 9.4-12 .3 H NUCLEATED RED BLOOD CELLS (BEAKER) (test code = 413) 0 /100 WBC 0 -0 NEUTROPHILS RELATIVE PERCENT (BEAKER) (test code = 429) 47 % LYMPHOCYTES RELATIVE PERCENT (BEAKER) (test code = 430) 32 % MONOCYTES RELATIVE PERCENT (BEAKER) (test code = 431) 15 % EOSINOPHILS RELATIVE PERCENT (BEAKER) (test code = 432) 3 % BASOPHILS RELATIVE PERCENT (BEAKER) (test code = 437) 1 % NEUTROPHILS ABSOLUTE COUNT (BEAKER) (test code = 670) 3.39 K/ L 1.56-6.13 LYMPHOCYTES ABSOLUTE COUNT (BEAKER) (test code = 414) 2.32 K/ L 1.18-3.74 MONOCYTES ABSOLUTE COUNT (BEAKER) (test code = 415) 1.08 K/ L 0. 24-0.36 H EOSINOPHILS ABSOLUTE COUNT (BEAKER) (test code = 416) 0.24 K/ L 0.04-0.36 BASOPHILS ABSOLUTE COUNT (BEAKER) (test code = 417) 0.07 K/ L 0. 01-0.08 IMMATURE GRANULOCYTES-RELATIVE PERCENT (BEAKER) (test code = 2801) 1 % 0-1 POCT-GLUCOSE [id number] 22:25:00* Test Item Value Reference Range Interpretation Comments POC-GLUCOSE METER (BEAKER) (test code = 1538) 152 mg/dL 70-110 H TESTED AT [facility] [address] [facility] [address] POCT-GLUCOSE [id number] 17:33:00* Test Item Value Reference Range Interpretation Comments POC-GLUCOSE METER (BEAKER) (test code = 1538) 95 mg/dL 70-110 TESTED AT [facility] [address] [facility] [address] CT, [id number] 13:47:00FINAL REPORT INDICATION:58-year-old female with abdominal pain. COMPARISON: Renal ultrasound exam May 23, 2018Chest radiograph May 23, 2018 TECHNIQUE: CT of the Abdomen and Pelvis WITHOUT intravenous contrast. Enteric contrast was used. The exam was performed according to our department dose-optimization protocol, which includes automated exposure control, adjustments of mA and kV according to patient size. Iterative reconstructions are also sometimes employed. FINDINGS:Liver, pancreas, spleen, adrenal glands, kidneys, bladder, uterus, ovaries are unremarkable. Patient is status post cholecystectomy. No biliary ductal dilatation is demonstrated. There is no evidence of bowel obstruction or infection. No peritoneal free fluid or free air is demonstrated. There is a consolidative opacity and mild volume loss in the right lung base, associated tiny right pleural effusion. Old laparotomy wound, rectus diastases, and two tiny fat-containing periumbilical hernias. 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 Osseous structures unremarkable. IMPRESSION: No evidence of acute abdomin al or pelvic abnormality. Consolidative opacity and mild volume loss in the righ t lung base. Pneumonia and atelectasis are considered. Tiny right pleural effusi on also noted. Tiny fat-containing periumbilical hernias. Prior cholecystectomy. Signed: Nagi Bowen MDReport Verified Date/Time: 05/26/2018 13:47:06 Read ing Location: [facility] Diagnostic Imaging Reading Room - [place] [id number] [facility] signed by: NAGI BOWEN M.D. on 05/26/2018 01:47 PM POCT-GLUCOSE [id number] 11:41:00* Test Item Value Reference Range Interpretation Comments POC-GLUCOSE METER (BEAKER) (test code = 1538) 145 mg/dL 70-110 H TESTED AT [place] [id number] [facility] [address] POCT-GLUCOSE [id number] 07:44:00* Test Item Value Reference Range Interpretation Comments POC-GLUCOSE METER (BEAKER) (test code = 1538) 83 mg/dL 70-110 TESTED AT [place] [id number] [facility] [address] BASIC METABOLIC [id number] 05:55:00* Test Item Value Reference Range Interpretation Comments SODIUM (BEAKER) (test code = 381) 135 meq/L 136-145 L POTASSIUM (BEAKER) (test code = 379) 5.0 meq/L 3.5-5.1 CHLORIDE (BEAKER) (test code = 382) 105 meq/L 98-107 CO2 (BEAKER) (test code = 355) 22 meq/L 22-29 BLOOD UREA NITROGEN (BEAKER) (test code = 354) 89 mg/dL 7-21 H CREATININE (BEAKER) (test code = 358) 2.15 mg/dL 0.57-1.25 H GLUCOSE RANDOM (BEAKER) (test code = 652) 71 mg/dL 70-105 CALCIUM (BEAKER) (test code = 697) 8.7 mg/dL 8.4-10.2 EGFR (BEAKER) (test code = 1092) 24 mL/min/1.73 sq m ESTIMATED GFR IS NOT ACCURATE CREATININE CLEARANCE IN PREDICTING GLOMERULAR FILTRATION RATE. ESTIMATED GFR IS NOT APPLICABLE FOR DIALYSIS PATIENTS. URIC [id number] 05:53:00* Test Item Value Reference Range Interpretation Comments URIC ACID (BEAKER) (test code = 773) 9.9 mg/dL 2.6-7.2 H [id number] 05:53:00* Test Item Value Reference Range Interpretation Comments MAGNESIUM (BEAKER) (test code = 627) 2.4 mg/dL 1.6-2.6 [id number] 05:41:00* Test Item Value Reference Range Interpretation Comments PARTIAL THROMBOPLASTIN TIME (BEAKER) (test code = 760) 33.4 seconds 22.5-36.0 PROTHROMBIN TIME/[id number] 05:37:00* Test Item Value Reference Range Interpretation Comments PROTIME (BEAKER) (test code = 759) 15.1 seconds 11.7-14.7 H INR (BEAKER) (test code = 370) 1.2 <=5.9 RECOMMENDED COUMADIN/WARFARIN INR THERAPY RANGESSTANDARD DOSE: 2.0 - 3.0 Inclu heidy: PROPHYLAXIS for venous thrombosis, systemic embolization; TREATMENT for donavan ous thrombosis and/or pulmonary embolus.HIGH RISK: Target INR is 2.5-3.5 for pat ients with mechanical heart valves.CBC W/PLT COUNT & AUTO [id number] 05:30:00* Test Item Value Reference Range Interpretation Comments WHITE BLOOD CELL COUNT (BEAKER) (test code = 775) 7.2 K/ L 3.5- 10.5 RED BLOOD CELL COUNT (BEAKER) (test code = 761) 2.50 M/ L 3.93-5 .22 L HEMOGLOBIN (BEAKER) (test code = 410) 7.3 GM/DL 11.2-15.7 L HEMATOCRIT (BEAKER) (test code = 411) 23.4 % 34.1-44.9 L MEAN CORPUSCULAR VOLUME (BEAKER) (test code = 753) 93.6 fL 79. 4-94.8 MEAN CORPUSCULAR HEMOGLOBIN (BEAKER) (test code = 751) 29.2 pg 25.6-32.2 MEAN CORPUSCULAR HEMOGLOBIN CONC (BEAKER) (test code = 752) 31.2 GM/DL 32.2-35.5 L RED CELL DISTRIBUTION WIDTH (BEAKER) (test code = 412) 13.0 % 11.7-14.4 PLATELET COUNT (BEAKER) (test code = 756) 221 K/CU MM 150-450 MEAN PLATELET VOLUME (BEAKER) (test code = 754) 12.4 fL 9.4-12 .3 H NUCLEATED RED BLOOD CELLS (BEAKER) (test code = 413) 0 /100 WBC 0 -0 NEUTROPHILS RELATIVE PERCENT (BEAKER) (test code = 429) 50 % LYMPHOCYTES RELATIVE PERCENT (BEAKER) (test code = 430) 33 % MONOCYTES RELATIVE PERCENT (BEAKER) (test code = 431) 13 % EOSINOPHILS RELATIVE PERCENT (BEAKER) (test code = 432) 3 % BASOPHILS RELATIVE PERCENT (BEAKER) (test code = 437) 1 % NEUTROPHILS ABSOLUTE COUNT (BEAKER) (test code = 670) 3.60 K/ L 1.56-6.13 LYMPHOCYTES ABSOLUTE COUNT (BEAKER) (test code = 414) 2.41 K/ L 1.18-3.74 MONOCYTES ABSOLUTE COUNT (BEAKER) (test code = 415) 0.91 K/ L 0. 24-0.36 H EOSINOPHILS ABSOLUTE COUNT (BEAKER) (test code = 416) 0.20 K/ L 0.04-0.36 BASOPHILS ABSOLUTE COUNT (BEAKER) (test code = 417) 0.06 K/ L 0. 01-0.08 IMMATURE GRANULOCYTES-RELATIVE PERCENT (BEAKER) (test code = 2801) 0 % 0-1 POCT-GLUCOSE [id number] 21:21:00* Test Item Value Reference Range Interpretation Comments POC-GLUCOSE METER (BEAKER) (test code = 1538) 116 mg/dL 70-110 H TESTED AT [facility] [facility] [address] [facility] [address] POCT-GLUCOSE [id number] 16:51:00* Test Item Value Reference Range Interpretation Comments POC-GLUCOSE METER (BEAKER) (test code = 1538) 69 mg/dL 70-110 L TESTED AT [address] [address] OCCULT BLOOD, [id number] 14:47:00* Test Item Value Reference Range Interpretation Comments FECAL OCCULT BLOOD (BEAKER) (test code = 618) Positive Negative A POCT-GLUCOSE [id number] 11:43:00* Test Item Value Reference Range Interpretation Comments POC-GLUCOSE METER (BEAKER) (test code = 1538) 137 mg/dL 70-110 H TESTED AT [address] [address] [id number] 10:34:00* Test Item Value Reference Range Interpretation Comments FERRITIN (BEAKER) (test code = 361) 102 ng/mL 5-275 PERIPHERAL BLOOD SMEAR - PATHOLOGIST [id number] 09:56:00* Test Item Value Reference Range Interpretation Comments PERIPHERAL SMR REVIEW (BEAKER) (test code = 2640) No c irculating blasts. No increased schistocytes. [id number] (BEAKER) (test code = 2849) Yg Mcgraw M.D.(electronic signature) POCT-GLUCOSE [id number] 07:57:00* Test Item Value Reference Range Interpretation Comments POC-GLUCOSE METER (BEAKER) (test code = 1538) 100 mg/dL 70-110 TESTED AT [address] [address] BASIC METABOLIC [id number] 07:38:00* Test Item Value Reference Range Interpretation Comments SODIUM (BEAKER) (test code = 381) 137 meq/L 136-145 POTASSIUM (BEAKER) (test code = 379) 4.6 meq/L 3.5-5.1 CHLORIDE (BEAKER) (test code = 382) 108 meq/L 98-107 H CO2 (BEAKER) (test code = 355) 21 meq/L 22-29 L BLOOD UREA NITROGEN (BEAKER) (test code = 354) 79 mg/dL 7-21 H CREATININE (BEAKER) (test code = 358) 2.03 mg/dL 0.57-1.25 H GLUCOSE RANDOM (BEAKER) (test code = 652) 80 mg/dL 70-105 CALCIUM (BEAKER) (test code = 697) 9.0 mg/dL 8.4-10.2 EGFR (BEAKER) (test code = 1092) 25 mL/min/1.73 sq m ESTIMATED GFR IS NOT ACCURATE CREATININE CLEARANCE IN PREDICTING GLOMERULAR FILTRATION RATE. ESTIMATED GFR IS NOT APPLICABLE FOR DIALYSIS PATIENTS. [id number] 07:37:00* Test Item Value Reference Range Interpretation Comments MAGNESIUM (BEAKER) (test code = 627) 2.4 mg/dL 1.6-2.6 CBC W/PLT COUNT & AUTO [id number] 06:16:00* Test Item Value Reference Range Interpretation Comments WHITE BLOOD CELL COUNT (BEAKER) (test code = 775) 7.0 K/ L 3.5- 10.5 RED BLOOD CELL COUNT (BEAKER) (test code = 761) 2.44 M/ L 3.93-5 .22 L HEMOGLOBIN (BEAKER) (test code = 410) 7.0 GM/DL 11.2-15.7 L HEMATOCRIT (BEAKER) (test code = 411) 23.3 % 34.1-44.9 L MEAN CORPUSCULAR VOLUME (BEAKER) (test code = 753) 95.5 fL 79. 4-94.8 H MEAN CORPUSCULAR HEMOGLOBIN (BEAKER) (test code = 751) 28.7 pg 25.6-32.2 MEAN CORPUSCULAR HEMOGLOBIN CONC (BEAKER) (test code = 752) 30.0 GM/DL 32.2-35.5 L RED CELL DISTRIBUTION WIDTH (BEAKER) (test code = 412) 13.1 % 11.7-14.4 PLATELET COUNT (BEAKER) (test code = 756) 228 K/CU MM 150-450 MEAN PLATELET VOLUME (BEAKER) (test code = 754) 12.5 fL 9.4-12 .3 H NUCLEATED RED BLOOD CELLS (BEAKER) (test code = 413) 0 /100 WBC 0 -0 NEUTROPHILS RELATIVE PERCENT (BEAKER) (test code = 429) 49 % LYMPHOCYTES RELATIVE PERCENT (BEAKER) (test code = 430) 32 % MONOCYTES RELATIVE PERCENT (BEAKER) (test code = 431) 15 % EOSINOPHILS RELATIVE PERCENT (BEAKER) (test code = 432) 3 % BASOPHILS RELATIVE PERCENT (BEAKER) (test code = 437) 1 % NEUTROPHILS ABSOLUTE COUNT (BEAKER) (test code = 670) 3.42 K/ L 1.56-6.13 LYMPHOCYTES ABSOLUTE COUNT (BEAKER) (test code = 414) 2.25 K/ L 1.18-3.74 MONOCYTES ABSOLUTE COUNT (BEAKER) (test code = 415) 1.07 K/ L 0. 24-0.36 H EOSINOPHILS ABSOLUTE COUNT (BEAKER) (test code = 416) 0.18 K/ L 0.04-0.36 BASOPHILS ABSOLUTE COUNT (BEAKER) (test code = 417) 0.07 K/ L 0. 01-0.08 IMMATURE GRANULOCYTES-RELATIVE PERCENT (BEAKER) (test code = 2801) 0 % 0-1 POCT-GLUCOSE [id number] 23:25:00* Test Item Value Reference Range Interpretation Comments POC-GLUCOSE METER (BEAKER) (test code = 1538) 118 mg/dL 70-110 H TESTED AT [address] [address] POCT-GLUCOSE [id number] 17:15:00* Test Item Value Reference Range Interpretation Comments POC-GLUCOSE METER (BEAKER) (test code = 1538) 154 mg/dL 70-110 H TESTED AT [address] [address] POCT-GLUCOSE [id number] 11:59:00* Test Item Value Reference Range Interpretation Comments POC-GLUCOSE METER (BEAKER) (test code = 1538) 156 mg/dL 70-110 H TESTED AT [address] [address] [id number] 09:24:00* Test Item Value Reference Range Interpretation Comments HAPTOGLOBIN (BEAKER) (test code = 366) 186 mg/dL 14-258 RETICULOCYTE [id number] 09:22:00* Test Item Value Reference Range Interpretation Comments RETICULOCYTE COUNT PCT (BEAKER) (test code = 575) 1.7 % 0.5- 1.7 LACTATE DEHYDROGENASE (LDH)2018-05-24 09:21:00* Test Item Value Reference Range Interpretation Comments LACTATE DEHYDROGENASE (BEAKER) (test code = 635) 225 U/L 125-2 20 H POCT-GLUCOSE [id number] 07:34:00* Test Item Value Reference Range Interpretation Comments POC-GLUCOSE METER (BEAKER) (test code = 1538) 106 mg/dL 70-110 TESTED AT [facility] [address] [facility] [address] VITAMIN B12 AND [id number] 06:36:00* Test Item Value Reference Range Interpretation Comments VITAMIN B12 (BEAKER) (test code = 774) 236 pg/mL 213-816 FOLATE (BEAKER) (test code = 362) 9.5 ng/mL >=7.0 PROTEIN, RANDOM [id number] 03:02:00* Test Item Value Reference Range Interpretation Comments PROTEIN, URINE (BEAKER) (test code = 1569) < mg/dL 0-14 BASIC METABOLIC [id number] 03:02:00* Test Item Value Reference Range Interpretation Comments SODIUM (BEAKER) (test code = 381) 135 meq/L 136-145 L POTASSIUM (BEAKER) (test code = 379) 4.4 meq/L 3.5-5.1 CHLORIDE (BEAKER) (test code = 382) 108 meq/L 98-107 H CO2 (BEAKER) (test code = 355) 20 meq/L 22-29 L BLOOD UREA NITROGEN (BEAKER) (test code = 354) 70 mg/dL 7-21 H CREATININE (BEAKER) (test code = 358) 1.96 mg/dL 0.57-1.25 H GLUCOSE RANDOM (BEAKER) (test code = 652) 81 mg/dL 70-105 CALCIUM (BEAKER) (test code = 697) 8.7 mg/dL 8.4-10.2 EGFR (BEAKER) (test code = 1092) 26 mL/min/1.73 sq m ESTIMATED GFR IS NOT ACCURATE CREATININE CLEARANCE IN PREDICTING GLOMERULAR FILTRATION RATE. ESTIMATED GFR IS NOT APPLICABLE FOR DIALYSIS PATIENTS. IRON, TIBC, % SAT. (WITHOUT FERRITIN)2018-05-24 03:01:00* Test Item Value Reference Range Interpretation Comments IRON (BEAKER) (test code = 547) 52 ug/dL 40-160 TOTAL IRON BINDING CAPACITY (BEAKER) (test code = 769) 448 ug/dL 250-450 IRON % SATURATION (2) (BEAKER) (test code = 2590) 12 % 20-5 5 L [id number] 02:45:00* Test Item Value Reference Range Interpretation Comments MAGNESIUM (BEAKER) (test code = 627) 2.4 mg/dL 1.6-2.6 CBC W/PLT COUNT & AUTO [id number] 02:28:00* Test Item Value Reference Range Interpretation Comments WHITE BLOOD CELL COUNT (BEAKER) (test code = 775) 7.8 K/ L 3.5- 10.5 RED BLOOD CELL COUNT (BEAKER) (test code = 761) 2.42 M/ L 3.93-5 .22 L HEMOGLOBIN (BEAKER) (test code = 410) 7.1 GM/DL 11.2-15.7 L HEMATOCRIT (BEAKER) (test code = 411) 22.7 % 34.1-44.9 L MEAN CORPUSCULAR VOLUME (BEAKER) (test code = 753) 93.8 fL 79. 4-94.8 MEAN CORPUSCULAR HEMOGLOBIN (BEAKER) (test code = 751) 29.3 pg 25.6-32.2 MEAN CORPUSCULAR HEMOGLOBIN CONC (BEAKER) (test code = 752) 31.3 GM/DL 32.2-35.5 L RED CELL DISTRIBUTION WIDTH (BEAKER) (test code = 412) 13.0 % 11.7-14.4 PLATELET COUNT (BEAKER) (test code = 756) 219 K/CU MM 150-450 MEAN PLATELET VOLUME (BEAKER) (test code = 754) 12.5 fL 9.4-12 .3 H NUCLEATED RED BLOOD CELLS (BEAKER) (test code = 413) 0 /100 WBC 0 -0 NEUTROPHILS RELATIVE PERCENT (BEAKER) (test code = 429) 48 % LYMPHOCYTES RELATIVE PERCENT (BEAKER) (test code = 430) 36 % MONOCYTES RELATIVE PERCENT (BEAKER) (test code = 431) 13 % EOSINOPHILS RELATIVE PERCENT (BEAKER) (test code = 432) 2 % BASOPHILS RELATIVE PERCENT (BEAKER) (test code = 437) 1 % NEUTROPHILS ABSOLUTE COUNT (BEAKER) (test code = 670) 3.77 K/ L 1.56-6.13 LYMPHOCYTES ABSOLUTE COUNT (BEAKER) (test code = 414) 2.77 K/ L 1.18-3.74 MONOCYTES ABSOLUTE COUNT (BEAKER) (test code = 415) 1.03 K/ L 0. 24-0.36 H EOSINOPHILS ABSOLUTE COUNT (BEAKER) (test code = 416) 0.16 K/ L 0.04-0.36 BASOPHILS ABSOLUTE COUNT (BEAKER) (test code = 417) 0.06 K/ L 0. 01-0.08 IMMATURE GRANULOCYTES-RELATIVE PERCENT (BEAKER) (test code = 2801) 0 % 0-1 URINALYSIS W/ [id number] 01:35:00* Test Item Value Reference Range Interpretation Comments COLOR (BEAKER) (test code = 470) Light Yellow CLARITY (BEAKER) (test code = 469) Clear SPECIFIC GRAVITY UA (BEAKER) (test code = 468) 1.005 1.001-1 .035 PH UA (BEAKER) (test code = 467) 5.0 5.0-8.0 PROTEIN UA (BEAKER) (test code = 464) Negative Negative GLUCOSE UA (BEAKER) (test code = 365) Negative Negative KETONES UA (BEAKER) (test code = 371) Negative Negative BILIRUBIN UA (BEAKER) (test code = 462) Negative Negative BLOOD UA (BEAKER) (test code = 461) Negative Negative NITRITE UA (BEAKER) (test code = 465) Negative Negative LEUKOCYTE ESTERASE UA (BEAKER) (test code = 466) Trace Negat gil A UROBILINOGEN UA (BEAKER) (test code = 463) 0.2 mg/dL 0.2-1.0 RBC UA (BEAKER) (test code = 519) 0 /HPF WBC UA (BEAKER) (test code = 520) 3 /HPF MUCUS (BEAKER) (test code = 1574) Rare SQUAMOUS EPITHELIAL (BEAKER) (test code = 516) < /HPF HYALINE CASTS (BEAKER) (test code = 514) 24 /LPF AMORPHOUS CRYSTALS (BEAKER) (test code = 1584) Rare SOURCE(BEAKER) (test code = 2795) Urine, Clean Catch U/S, RENAL, [id number] 23:56:00Reason for exam:->SHORTNESS OF BREATH FINAL REPORT Ultrasound of the Kidneys Clinical History: Shortness of breath Discussion: Sonographic evaluation of the kidneys was perfo rmed. There is no prior study for comparison. The study is limited by poor acous tic shadows. Right kidney: 10.5 x 5.5 x 5.2 cm, with cortical thickness of 1.3 cm. Normal cortical echogenicity. No mass. No shadowing calculus. No hydronep hrosis. Left kidney: 11.6 x 4.1 x 5.3 cm, with cortical thickness of 1.1 cm. No rmal cortical echogenicity. No mass. No shadowing calculus. No hydronephrosis . Limited doppler evaluation of bilateral main renal arteries and veins demonstr ate patency. Bladder: Unremarkable. Impression: No hydronephrosis. Signed: Sy Pradhan Verified Date/Time: 05/23/2018 23:56:54 Reading Location: [place] [address] Body Reading Room B-TYPE NATRIURETIC FACTOR (BNP)2018-05-23 22:18:00 * Test Item Value Reference Range Interpretation Comments B-TYPE NATRIURETIC PEPTIDE (BEAKER) (test code = 700) 176 pg/mL 0-100 H TROPONIN [id number] 22:18:00* Test Item Value Reference Range Interpretation Comments TROPONIN I (BEAKER) (test code = 397) < ng/mL 0.00-0.03 Troponin I (TnI) levels must be interpreted in the context of the presenting sym ptoms and the clinical findings. Elevated TnI levels indicate myocardial damage, but are not specific for ischemic heart disease. Elevated TnI levels are seen in patients with other cardiac conditions (including myocarditis and congestive h eart failure), and slight TnI elevations occur in patients with other conditions , including sepsis, renal failure, acidosis, acute neurological disease, and per sistent tachyarrhythmia.BASIC METABOLIC [id number] 22:11:00* Test Item Value Reference Range Interpretation Comments SODIUM (BEAKER) (test code = 381) 135 meq/L 136-145 L POTASSIUM (BEAKER) (test code = 379) 5.0 meq/L 3.5-5.1 CHLORIDE (BEAKER) (test code = 382) 108 meq/L 98-107 H CO2 (BEAKER) (test code = 355) 18 meq/L 22-29 L BLOOD UREA NITROGEN (BEAKER) (test code = 354) 69 mg/dL 7-21 H CREATININE (BEAKER) (test code = 358) 2.11 mg/dL 0.57-1.25 H GLUCOSE RANDOM (BEAKER) (test code = 652) 90 mg/dL 70-105 CALCIUM (BEAKER) (test code = 697) 9.1 mg/dL 8.4-10.2 EGFR (BEAKER) (test code = 1092) 24 mL/min/1.73 sq m ESTIMATED GFR IS NOT ACCURATE CREATININE CLEARANCE IN PREDICTING GLOMERULAR FILTRATION RATE. ESTIMATED GFR IS NOT APPLICABLE FOR DIALYSIS PATIENTS. [id number] 22:10:00* Test Item Value Reference Range Interpretation Comments MAGNESIUM (BEAKER) (test code = 627) 2.2 mg/dL 1.6-2.6 CBC W/PLT COUNT & AUTO [id number] 21:56:00* Test Item Value Reference Range Interpretation Comments WHITE BLOOD CELL COUNT (BEAKER) (test code = 775) 7.6 K/ L 3.5- 10.5 RED BLOOD CELL COUNT (BEAKER) (test code = 761) 2.69 M/ L 3.93-5 .22 L HEMOGLOBIN (BEAKER) (test code = 410) 7.9 GM/DL 11.2-15.7 L HEMATOCRIT (BEAKER) (test code = 411) 25.9 % 34.1-44.9 L MEAN CORPUSCULAR VOLUME (BEAKER) (test code = 753) 96.3 fL 79. 4-94.8 H MEAN CORPUSCULAR HEMOGLOBIN (BEAKER) (test code = 751) 29.4 pg 25.6-32.2 MEAN CORPUSCULAR HEMOGLOBIN CONC (BEAKER) (test code = 752) 30.5 GM/DL 32.2-35.5 L RED CELL DISTRIBUTION WIDTH (BEAKER) (test code = 412) 13.2 % 11.7-14.4 PLATELET COUNT (BEAKER) (test code = 756) 249 K/CU MM 150-450 MEAN PLATELET VOLUME (BEAKER) (test code = 754) 12.1 fL 9.4-12 .3 NUCLEATED RED BLOOD CELLS (BEAKER) (test code = 413) 0 /100 WBC 0 -0 NEUTROPHILS RELATIVE PERCENT (BEAKER) (test code = 429) 53 % LYMPHOCYTES RELATIVE PERCENT (BEAKER) (test code = 430) 32 % MONOCYTES RELATIVE PERCENT (BEAKER) (test code = 431) 13 % EOSINOPHILS RELATIVE PERCENT (BEAKER) (test code = 432) 2 % BASOPHILS RELATIVE PERCENT (BEAKER) (test code = 437) 1 % NEUTROPHILS ABSOLUTE COUNT (BEAKER) (test code = 670) 3.99 K/ L 1.56-6.13 LYMPHOCYTES ABSOLUTE COUNT (BEAKER) (test code = 414) 2.40 K/ L 1.18-3.74 MONOCYTES ABSOLUTE COUNT (BEAKER) (test code = 415) 1.01 K/ L 0. 24-0.36 H EOSINOPHILS ABSOLUTE COUNT (BEAKER) (test code = 416) 0.12 K/ L 0.04-0.36 BASOPHILS ABSOLUTE COUNT (BEAKER) (test code = 417) 0.06 K/ L 0. 01-0.08 IMMATURE GRANULOCYTES-RELATIVE PERCENT (BEAKER) (test code = 2801) 0 % 0-1 RAD, CHEST, 2 [id number] 21:32:00Reason for exam:->SHORTNESS OF BREATHFINAL REPORT Exam: Chest x-ray, PA and lateral views Clinical History: Shortness of breath. Comparison: Chest radiograph 03/10/2018. Technique: Frontal and lateral views of the chest were obtained. Findings:The heart is top normal in size. The aorta is uncoiled.There is pulmonary interstitial edema. There is a small right pleural effusion. There is hazy airspace opacity in the right lung base which may represent atelectasis, pneumonia and/or edema. There is no pneumothorax. Impression:Borderline cardiomegaly. Pulmonary interstitial edema. Small right pleural effusion. Right basilar opacity which may represent a telectasis, pneumonia and/or edema. Signed: Sy Abarca MDReport Verified Date/Time: 05/23/2018 21:32:01 Reading Location: [facility] B1 C013Y CT Body Reading R oom /FREE T4 IF [id number] 20:52:00* Test Item Value Reference Range Interpretation Comments THYROID STIMULATING HORMONE (BEAKER) (test code = 772) 1.64 uIU/mL 0.35-4.94 B-TYPE NATRIURETIC FACTOR (BNP)2018-03-10 12:48:00* Test Item Value Reference Range Interpretation Comments B-TYPE NATRIURETIC PEPTIDE (EDWARD) (test code = 700) 107 pg/mL 0-100 H TROPONIN [id number] 12:43:00* Test Item Value Reference Range Interpretation Comments TROPONIN I (EDWARD) (test code = 397) < ng/mL 0.00-0.03 Troponin I (TnI) levels must be interpreted in the context of the presenting sym ptoms and the clinical findings. Elevated TnI levels indicate myocardial damage, but are not specific for ischemic heart disease. Elevated TnI levels are seen in patients with other cardiac conditions (including myocarditis and congestive h eart failure), and slight TnI elevations occur in patients with other conditions , including sepsis, renal failure, acidosis, acute neurological disease, and per sistent tachyarrhythmia.[id number] 12:29:00* Test Item Value Reference Range Interpretation Comments MAGNESIUM (EDWARD) (test code = 627) 1.7 mg/dL 1.6-2.6 Specimen slightly hemolyzed RAD, CHEST, 1 VIEW, NON [id number] 12:17:00Reason for exam:->sobShould this be performed at the bedside?->NoIs the patient ?->NoFINAL REPORT Chest one view INDICATION: Shortness of breath COMPARISON: None available IMPRESSION: Increased interstitial markings may reflect vascular congestion or mild atypical pneumonitis. There is no pneumothorax or pleural effusion. Heart size is at the upper limit of normal. Mild aortic tortuosity, mild osseous degenerative changes, and right neck surgical clips are noted. Signed: Ayanna Rondon MDReport Verified Date/Time: 03/10/2018 12:17:56 Reading Location: [facility] Radiology Reading Room W/PLT COUNT & AUTO [id number] 11:36:00* Test Item Value Reference Range Interpretation Comments WHITE BLOOD CELL COUNT (EDWARD) (test code = 775) 11.7 K/ L 3.5- 10.5 H RED BLOOD CELL COUNT (BEAKER) (test code = 761) 3.77 M/ L 3.93-5 .22 L HEMOGLOBIN (BEAKER) (test code = 410) 10.9 GM/DL 11.2-15.7 L HEMATOCRIT (BEAKER) (test code = 411) 35.8 % 34.1-44.9 MEAN CORPUSCULAR VOLUME (BEAKER) (test code = 753) 95.0 fL 79. 4-94.8 H MEAN CORPUSCULAR HEMOGLOBIN (BEAKER) (test code = 751) 28.9 pg 25.6-32.2 MEAN CORPUSCULAR HEMOGLOBIN CONC (BEAKER) (test code = 752) 30.4 GM/DL 32.2-35.5 L RED CELL DISTRIBUTION WIDTH (BEAKER) (test code = 412) 13.3 % 11.7-14.4 PLATELET COUNT (BEAKER) (test code = 756) 283 K/CU MM 150-450 MEAN PLATELET VOLUME (BEAKER) (test code = 754) 13.0 fL 9.4-12 .3 H NUCLEATED RED BLOOD CELLS (BEAKER) (test code = 413) 0 /100 WBC 0 -0 NEUTROPHILS RELATIVE PERCENT (BEAKER) (test code = 429) 53 % LYMPHOCYTES RELATIVE PERCENT (BEAKER) (test code = 430) 35 % MONOCYTES RELATIVE PERCENT (BEAKER) (test code = 431) 9 % EOSINOPHILS RELATIVE PERCENT (BEAKER) (test code = 432) 2 % BASOPHILS RELATIVE PERCENT (BEAKER) (test code = 437) 1 % NEUTROPHILS ABSOLUTE COUNT (BEAKER) (test code = 670) 6.17 K/ L 1.56-6.13 H LYMPHOCYTES ABSOLUTE COUNT (BEAKER) (test code = 414) 4.08 K/ L 1.18-3.74 H MONOCYTES ABSOLUTE COUNT (BEAKER) (test code = 415) 1.07 K/ L 0. 24-0.36 H EOSINOPHILS ABSOLUTE COUNT (BEAKER) (test code = 416) 0.23 K/ L 0.04-0.36 BASOPHILS ABSOLUTE COUNT (BEAKER) (test code = 417) 0.08 K/ L 0. 01-0.08 IMMATURE GRANULOCYTES-RELATIVE PERCENT (BEAKER) (test code = 2801) 0 % 0-1 BASIC METABOLIC [id number] 11:32:00* Test Item Value Reference Range Interpretation Comments SODIUM (BEAKER) (test code = 381) 132 meq/L 136-145 L POTASSIUM (BEAKER) (test code = 379) 5.4 meq/L 3.5-5.1 H CHLORIDE (BEAKER) (test code = 382) 102 meq/L 98-107 CO2 (BEAKER) (test code = 355) 19 meq/L 22-29 L BLOOD UREA NITROGEN (BEAKER) (test code = 354) 37 mg/dL 7-21 H CREATININE (BEAKER) (test code = 358) 1.22 mg/dL 0.57-1.25 GLUCOSE RANDOM (BEAKER) (test code = 652) 337 mg/dL 70-105 H CALCIUM (BEAKER) (test code = 697) 10.2 mg/dL 8.4-10.2 EGFR (BEAKER) (test code = 1092) mL/min/1.73 sq m INSUFFICIENT CLINICAL DATA TO CALCULATE ESTIMATED GFR.
[2020-01-10] MEDS ORDERED: SODIUM CHLORIDE FLUSH 10 ML SYR INJ PRN (12:00)
[2020-01-10] MEDS ORDERED: LABETALOL HCL 5 MG/ML 20ML VIAL IV STA (12:10)
--- NOTE | 2020-01-10 12:47 | Emergency Department Note ---
History of Present Illnes History of Present Illness Chief Complaint: sent by [facility] because high potassium History of Present Illness This is a 59 year old female. d/vignesh on 12/25 dx tia but had hyperkalemia while hospitalized. 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 Any updates have been documented here. Past Medical History Recent Fever: No Clinical Suspicion of Infectio: No New/Unexplained Change in Ment: No Past Medical History: Hypertension, Diabetes, TIA, CAD, Anxiety, Hyperlipedemia Past Surgical History: None Social History Smoking Cessation: Never Smoker Counseling Performed: No Alcohol Use: None Any Illegal Drug Use: No TB Exposure/Symptoms: No Physically hurt or threatened: No Family History Family history of heart diseas: Yes Other Any Pre-Existing Lines (PICC,: No Is patient up to date on immun: Yes Last Flu: none Last Pneumovax: none Review of Systems Review of Systems Constitutional: no symptoms EENTM: no symptoms Cardiovascular: no symptoms Respiratory: no symptoms Gastrointestinal: no symptoms Genitourinary: no symptoms Musculoskeletal: no symptoms Neurological: no symptoms Psychological: no symptoms Endocrine: no symptoms Hematological/Lymphatic: no symptoms Review of other systems All other systems reviewed and negative. Physical Exam Related Data Allergies: Coded Allergies: fluconazole (Verified Allergy, Unknown, 01/10/20) Triage Vital Signs Vital Signs Date Time Temp Pulse Resp B/P (MAP) Pulse Ox O2 Delivery O2 Flow Rate FiO2 01/10/20 11:40 98.7 80 20 250/93 97 Vital signs reviewed: Yes Physical Exam CONSTITUTIONAL Constitutional: well-developed, well-nourished HENT HENT: normocephalic, atraumatic, oropharynx clear/moist, nose normal HENT L/R: left ext ear normal, right ext ear normal EYES Eyes: PERRL, conjunctivae normal NECK Neck: ROM normal PULMONARY Pulmonary: effort normal, breath sounds normal CARDIOVASCULAR Cardiovascular: regular rhythm, heart sounds normal, capillary refill normal, normal rate GASTROINTESTINAL Abdominal: soft, nontender, bowel sounds normal GENITOURINARY Genitourinary: exam deferred SKIN Skin: warm, dry MUSCULOSKELETAL Musculoskeletal: ROM normal NEUROLOGICAL Neurological: alert, oriented x 3, no gross motor or sensory deficits PSYCHOLOGICAL Psychological: mood/affect normal, judgement normal Results Laboratory Lab results reviewed: Yes (cbc and cmp normal except hgb = 11.1, hct= 35 and glu 308. k= 4.9) Critical Care Time Subsequent provider I assumed direction of critical care for this patient from another provider of my specialty. Assessment & Plan Reassessment Reassessment time: 12:55 Reassessment sbp 180's s/p labetalol Assessment & Plan Final Impression: (1) ESSENTIAL (PRIMARY) HYPERTENSION (2) TYPE 2 DIABETES MELLITUS WITHOUT COMPLICATIONS Assessment & Plan take clonidine as needed to control blood pressure. follow up with pcp Depart Disposition: HOME, SELF-CARE Last Vital Signs Date Time Temp Pulse Resp B/P (MAP) Pulse Ox O2 Delivery O2 Flow Rate FiO2 01/10/20 12:19 65 18 229/100 98 01/10/20 11:40 98.7 Medications in the ED Sodium Chloride 10 ml PRN PRN INJ IV SITE FLUSH; Start 01/10/20 at 12:00; Stop 02/09/20 at 11:59 Labetalol HCl 20 mg NOW STAT IV ; Start 01/10/20 at 12:10; Stop 01/10/20 at 12:11; Status MICHA POE Jan 10, 2020 12:47
[2020-01-10] MEDS ORDERED: CLONIDINE HCL0.2 MG PO (13:04)
[2020-01-10 13:33] VITALS: BP 196/84
[2020-01-10] MEDS ORDERED: METOPROLOL SUCC25 MG (14:25)
[2020-01-10] MEDS ORDERED: LISINOPRIL5 MG PO (14:25)
[2020-01-10] MEDS ORDERED: TRULICITY1.5 MG/0.5 SQ (14:25)
[2020-01-10] MEDS ORDERED: ASPIRIN EC81 MG PO (14:25)
[2020-01-10] MEDS ORDERED: SIMVASTATIN40 MG PO (14:25)
[2020-01-10] MEDS ORDERED: HUMULIN R100 UNIT/2 (14:25)
[2020-01-10] MEDS ORDERED: URSODIOL300 MG (14:25)
[2020-01-10] MEDS ORDERED: TORSEMIDE10 MG (14:25)
[2020-01-10] MEDS ORDERED: NOVOLOG100 UNIT/1 SC (14:25)
[2020-01-10] MEDS ORDERED: ROPINIROLE HCL1 MG PO (14:25)
[2020-01-10] MEDS ORDERED: GLIPIZIDE5 MG PO (14:25)
[2020-01-10] MEDS ORDERED: PLAVIX75 MG PO (14:25)
== END 2020-01-10 13:25 | disposition home or self-care (01) ==
LOC: FSED 11:38
DX: I10 Essential (primary) hypertension (principal); E11.65 Type 2 diabetes mellitus with hyperglycemia; I25.10 Atherosclerotic heart disease of native coronary artery without angina pectoris; E78.5 Hyperlipidemia, unspecified; F41.9 Anxiety disorder, unspecified; Z86.73 Personal history of transient ischemic attack (TIA), and cerebral infarction without residual deficits
CPT/HCPCS: 80048; 85025; 96374; 99284; J3490